=== PATIENT | male | born 1930 | race Caucasian/White ===

== ENCOUNTER 2018-10-20 08:55 | Observation (INO) | payer MEDICARE, BC ==
--- NOTE | 2018-10-20 09:07 | EDM.PDOC ---
ED HPI GENERAL MEDICAL PROBLEM - General Stated Complaint: HEART PALPATATION Time Seen by Provider: 10/20/18 08:55 Source of Information: Reports: Patient, Family () History Limitations: Reports: No Limitations - History of Present Illness INITIAL COMMENTS - FREE TEXT/NARRATIVE: 88 y.o.w.f with a H/O HTN, NIDDM, came to the ED with his family because of palpitations. No SOB, no CP, no other acute med issues. BP 153/85 RR 20 pulse 106 pulse ox on RA 97%. Temp36.6 Onset Date: 10/20/18 Onset Time: 07:00 Duration: Hour(s): Location: Reports: Generalized Quality: Reports: Other Severity: Mild Improves with: Reports: None Worsens with: Reports: None Context: Reports: Other Associated Symptoms: Reports: Weakness, Other (palpitations) DENIES ANY PAIN WHEN ASKED AT PRESENT TIME. Pain Score (Numeric/FACES): 0 - Related Data Allergies Allergy/AdvReac Type Severity Reaction Status Date / Time No Known Allergies Allergy Verified 10/20/18 13:44 Home Meds: Home Meds Doxazosin [Cardura] 8 mg PO DAILY 08/06/13 [History] Lisinopril 40 mg PO DAILY 08/06/13 [History] Metoprolol Succinate [Toprol XL 100mg] 100 mg PO DAILY 08/06/13 [History] Simvastatin [Zocor] 20 mg PO DAILY 08/06/13 [History] metFORMIN [Glucophage] 1,000 mg PO BID 08/06/13 [History] Aspirin 325 mg PO DAILY 10/20/18 [History] Carboxymethylcellulose Sodium [Refresh Tears 0.5% Ophth Soln] 1 drop EYEBOTH TID 10/20/18 [History] Finasteride [Proscar] 5 mg PO DAILY 10/20/18 [History] Past Medical History Cardiovascular History: Reports: Hypertension, [place] ED ROS GENERAL - Review of Systems Review Of Systems: See Below Constitutional: Reports: No Symptoms HEENT: Reports: No Symptoms Respiratory: Reports: No Symptoms Cardiovascular: Reports: Palpitations Endocrine: Reports: No Symptoms GI/Abdominal: Reports: No Symptoms : Reports: No Symptoms Musculoskeletal: Reports: No Symptoms Skin: Reports: No Symptoms Neurological: Reports: No Symptoms Psychiatric: Reports: No Symptoms Hematologic/Lymphatic: Reports: No Symptoms Immunologic: Reports: No Symptoms ED EXAM, GENERAL - Physical Exam Exam: See Below Exam Limited By: No Limitations General Appearance: Alert, WD/WN, Mild Distress Eye Exam: Bilateral Eye: Normal Inspection Ears: Normal External Exam Ear Exam: Bilateral Ear: Auricle Normal Nose: Normal Inspection Throat/Mouth: Normal Inspection, Normal Lips, Normal Voice, No Airway Compromise Head: Atraumatic, Normocephalic Neck: Normal Inspection, Supple, Non-Tender, Full Range of Motion Respiratory/Chest: No Respiratory Distress, Lungs Clear, Normal Breath Sounds Cardiovascular: Tachycardia, Extra Beats Peripheral Pulses: 1+: Brachial (L) GI/Abdominal: Normal Bowel Sounds, Soft, Non-Tender, No Organomegaly, Pelvis Stable (Male) Exam: Hernia (abd. wall.) Rectal (Males) Exam: Deferred Back Exam: Normal Inspection, Full Range of Motion Extremities: Normal Inspection, Normal Range of Motion, Non-Tender, No Pedal Edema, Normal Capillary Refill Neurological: Alert, Oriented, CN II-XII Intact, Normal Cognition Psychiatric: Normal Affect, Normal Mood Skin Exam: Warm, Dry, Intact, Normal Color, No Rash Lymphatic: No Adenopathy EKG INTERPRETATION EKG Date: 10/20/18 Time: 09:05 Rhythm: A-Fib Mcdermott: LAD-Left Mcdermott Deviation P-Wave: Absent QRS: Normal ST-T: Normal QT: Normal Comparison: NA - No Prior EKG Course - Vital Signs Text/Narrative:: 88 y.o.w.f with a H/O HTN, NIDDM, came to the ED with his family because of palpitations. No SOB, no CP, no other acute med issues. BP 153/85 RR 20 pulse 106 pulse ox on RA 97%. Temp36.6 PE: WNWD W M with palpitations A fib with RC=VR Labs: CBC nl INR 1.21 BUN 24 Cr. 1.0 GFR > 60 BUN/CR 24 Magnesium 1.1 Impression: Hypomagnesemia, a fib, new onset, dehydration Tx: Mg 2 gm, NS Reexam: Pt converted to NSR: Rate 80 SD 296 QTc 446, no acute ST/T wave chances. Pt had lunch and felt better. However, pt was orthostatic, Pt received NS and was admitted. 12.45 pm Consultation: Dr. Santos, Hospitalist: Accepted admission Plan: Admit to diop for OBS Last Recorded V/S: Last Vital Signs Temp 36.5 C 10/20/18 14:45 Pulse 72 10/20/18 14:45 Resp 20 10/20/18 14:45 BP 157/71 H 10/20/18 14:45 Pulse Ox 97 10/20/18 14:45 - Orders/Labs/Meds Orders: Active Orders 24 hr Category Date Time Status EKG Documentation Completion [RC] ASDIRECTED Care 10/20/18 08:58 Active EKG Documentation Completion [RC] ASDIRECTED Care 10/20/18 10:23 Active EKG 12 Lead [EK] Routine Ther 10/20/18 08:57 Ordered EKG 12 Lead [EK] Routine Ther 10/20/18 10:23 Ordered Medication Orders Enoxaparin Sodium (Lovenox) 30 mg SUBCUT Q24H KATTY Labs: Laboratory Tests 10/20/18 10/20/18 10/20/18 Range/Units 09:11 09:11 09:11 WBC 7.0 (4.5-12.0) X10-3/uL RBC 4.36 (4.30-5.75) x10(6)uL Hgb 13.3 L (13.5-17.8) g/dL Hct 39.7 (30.0-51.3) % MCV 91.0 (80-96) fL MCH 30.5 (27.7-33.6) pg MCHC 33.5 (32.2-35.4) g/dL RDW 13.7 (11.5-15.5) % Plt Count 186 (125-369) X10(3)uL MPV 8.5 (7.4-10.4) fL Neut % (Auto) 63.8 (46-82) % Lymph % (Auto) 27.5 (13-37) % [place] % (Auto) 7.1 (4-12) % Eos % (Auto) 1 (1.0-5.0) % Baso % (Auto) 0 (0-2) % Neut # (Auto) 4.5 (1.6-8.3) # Lymph # (Auto) 1.9 (0.6-5.0) # [place] # (Auto) 0.5 (0.0-1.3) # Eos # (Auto) 0.1 (0.0-0.8) # Baso # (Auto) 0.0 (0.0-0.2) # PT 11.7 H (8.7-11.1) INR 1.21 H (0.89-1.13) Sodium 141 (135-145) mmol/L Potassium 4.0 (3.5-5.3) mmol/L Chloride 104 (100-110) mmol/L Carbon Dioxide 25 (21-32) mmol/L BUN 24 H (7-18) mg/dL Creatinine 1.0 (0.70-1.30) mg/dL Est Cr Clr Drug Dosing TNP Estimated GFR (MDRD) > 60 (>60) BUN/Creatinine Ratio 24.0 H (9-20) Glucose 162 H (80-116) mg/dL Calcium 8.7 (8.6-10.2) mg/dL Magnesium 1.1 L* (1.8-2.5) mg/dL Troponin I (<0.017-0.056) ng/mL Urine Color (YELLOW) Urine Appearance (CLEAR) Urine pH (5.0-6.5) Ur Specific [place] (1.010-1.025) Urine Protein (NEGATIVE) mg/dL Urine Glucose (UA) (NORMAL) mg/dL Urine Ketones (NEGATIVE) mg/dL Urine Occult Blood (NEGATIVE) Urine Nitrite (NEGATIVE) Urine Bilirubin (NEGATIVE) Urine Urobilinogen (NEGATIVE) mg/dL Ur Leukocyte Esterase (NEGATIVE) Urine RBC (0-5) Urine WBC (0-5) Ur Squamous Epith Cells (NS,R,O) Urine Bacteria (NS) 10/20/18 10/20/18 Range/Units 09:11 10:29 WBC (4.5-12.0) X10-3/uL RBC (4.30-5.75) x10(6)uL Hgb (13.5-17.8) g/dL Hct (30.0-51.3) % MCV (80-96) fL MCH (27.7-33.6) pg MCHC (32.2-35.4) g/dL RDW (11.5-15.5) % Plt Count (125-369) X10(3)uL MPV (7.4-10.4) fL Neut % (Auto) (46-82) % Lymph % (Auto) (13-37) % [place] % (Auto) (4-12) % Eos % (Auto) (1.0-5.0) % Baso % (Auto) (0-2) % Neut # (Auto) (1.6-8.3) # Lymph # (Auto) (0.6-5.0) # [place] # (Auto) (0.0-1.3) # Eos # (Auto) (0.0-0.8) # Baso # (Auto) (0.0-0.2) # PT (8.7-11.1) INR (0.89-1.13) Sodium (135-145) mmol/L Potassium (3.5-5.3) mmol/L Chloride (100-110) mmol/L Carbon Dioxide (21-32) mmol/L BUN (7-18) mg/dL Creatinine (0.70-1.30) mg/dL Est Cr Clr Drug Dosing Estimated GFR (MDRD) (>60) BUN/Creatinine Ratio (9-20) Glucose (80-116) mg/dL Calcium (8.6-10.2) mg/dL Magnesium (1.8-2.5) mg/dL Troponin I 0.019 (<0.017-0.056) ng/mL Urine Color Yellow (YELLOW) Urine Appearance Clear (CLEAR) Urine pH 5.0 (5.0-6.5) Ur Specific [place] 1.015 (1.010-1.025) Urine Protein Negative (NEGATIVE) mg/dL Urine Glucose (UA) Normal (NORMAL) mg/dL Urine Ketones Negative (NEGATIVE) mg/dL Urine Occult Blood Negative (NEGATIVE) Urine Nitrite Negative (NEGATIVE) Urine Bilirubin Negative (NEGATIVE) Urine Urobilinogen Normal (NEGATIVE) mg/dL Ur Leukocyte Esterase Negative (NEGATIVE) Urine RBC Not seen (0-5) Urine WBC 0-5 (0-5) Ur Squamous Epith Cells Occasional (NS,R,O) Urine Bacteria Rare H (NS) Meds: Medications Generic Name Dose Route Start Last Admin Trade Name Freq PRN Reason Stop Dose Admin Enoxaparin Sodium 30 mg 10/20/18 17:30 Lovenox SUBCUT Q24H KATTY Discontinued Medications Generic Name Dose Route Start Last Admin Trade Name Freq PRN Reason Stop Dose Admin Sodium Chloride 500 mls @ 999 mls/hr 10/20/18 09:16 10/20/18 09:27 Normal Saline IV 10/20/18 09:46 999 mls/hr .BOLUS ONE Administration Magnesium Sulfate 2 gm/ Premix 50 mls @ 150 mls/hr 10/20/18 09:29 10/20/18 09 :33 IV 10/20/18 09:48 150 mls/hr ONETIME ONE Administration Meclizine HCl 25 mg 10/20/18 10:53 10/20/18 11:29 Antivert PO 10/20/18 10:54 25 mg ONETIME STA Administration Departure - Departure Time of Disposition: 10:51 Disposition: Home, Self-Care 01 Condition: Good Clinical Impression: Hypomagnesemia, Dehydration - My Orders Last 24 Hours: My Active Orders 10/20/18 08:57 EKG 12 Lead [EK] Routine 10/20/18 08:58 EKG Documentation Completion [RC] ASDIRECTED 10/20/18 10:23 EKG Documentation Completion [RC] ASDIRECTED EKG 12 Lead [EK] Routine - Assessment/Plan Last 24 Hours: My Active Orders 10/20/18 08:57 EKG 12 Lead [EK] Routine 10/20/18 08:58 EKG Documentation Completion [RC] ASDIRECTED 10/20/18 10:23 EKG Documentation Completion [RC] ASDIRECTED EKG 12 Lead [EK] Routine
[2018-10-20] MEDS ORDERED: Sodium Chloride 0.9% 500 ML IV ONE (09:16)
[2018-10-20] MEDS ORDERED: Magnesium Sulfate/Water 2 GM in Premix Bag 1 BAG IV ONE (09:29)
[2018-10-20] MEDS ORDERED: Sodium Chloride 0.9% 1,000 ML IV ONE (09:58)
[2018-10-20] MEDS ORDERED: Meclizine 25 MG Tab PO STA (10:53)
--- NOTE | 2018-10-20 17:18 | PCM.HP ---
H&P History of Present Illness - General Date of Service: 10/20/18 Admit Problem/Dx: Admission Diagnosis/Problem Admission Diagnosis/Problem Hypotensive episode Source of Information: Patient, Old Records History Limitations: Reports: No Limitations - History of Present Illness Initial Comments - Free Text/Narative: This is a 88-year-old male patient with diabetes and hypertension states today he started having some palpitations of rapid heart heartbeats. Says he felt a little funny but wasn't short of breath and no chest pain or dizziness. He didn' t go away so he came to the ER. He was diagnosed A. fib and hypomagnesemia. Give him IV magnesium and he converted immediately. He's never had A. fib before. His blood pressure is very low is given IV fluids and because of low blood pressure he was admitted for observation. He apparently had stents placed 25 years ago but nothing recently and his heart. DENIES ANY PAIN WHEN ASKED AT PRESENT TIME. Pain Score (Numeric/FACES): 0 - Related Data Allergies/Adverse Reactions: Allergies Allergy/AdvReac Type Severity Reaction Status Date / Time No Known Allergies Allergy Verified 10/20/18 13:44 Home Medications: Home Meds Doxazosin [Cardura] 8 mg PO DAILY 08/06/13 [History] Lisinopril 40 mg PO DAILY 08/06/13 [History] Metoprolol Succinate [Toprol XL 100mg] 100 mg PO DAILY 08/06/13 [History] Simvastatin [Zocor] 20 mg PO DAILY 08/06/13 [History] metFORMIN [Glucophage] 1,000 mg PO BID 08/06/13 [History] Aspirin 325 mg PO DAILY 10/20/18 [History] Carboxymethylcellulose Sodium [Refresh Tears 0.5% Ophth Soln] 1 drop EYEBOTH TID 10/20/18 [History] Finasteride [Proscar] 5 mg PO DAILY 10/20/18 [History] Past Medical History HEENT History: Reports: Cataract, Impaired Vision Cardiovascular History: Reports: Hypertension, [place] Respiratory History: Reports: SOB Gastrointestinal History: Reports: GERD, Hemorrhoids Musculoskeletal History: Reports: Arthritis, Back Pain, Chronic Endocrine/Metabolic History: Reports: Diabetes, Type II - Infectious Disease History Infectious Disease History: Reports: Chicken Pox, Measles, Mumps - Past Surgical History HEENT Surgical History: Reports: Cataract Surgery Cardiovascular Surgical History: Reports: Coronary Artery Stent Respiratory Surgical History: Reports: None GI Surgical History: Reports: Colonoscopy Endocrine Surgical History: Reports: None Musculoskeletal Surgical History: Reports: None Dermatological Surgical History: Reports: None Social & Family History - Family History Family Medical History: Noncontributory - Tobacco Use Smoking Status *Q: Former Smoker Years of Tobacco use: 40 Used Tobacco, but Quit: Yes Month/Year Tobacco Last Used: 40 YEARS AGO Second Hand Smoke Exposure: No - Caffeine Use Caffeine Use: Reports: Coffee - Recreational Drug Use Recreational Drug Use: No H&P Review of Systems - Review of Systems: Review Of Systems: See Below General: Reports: No Symptoms HEENT: Reports: No Symptoms Pulmonary: Reports: No Symptoms Cardiovascular: Reports: Palpitations Gastrointestinal: Reports: No Symptoms Genitourinary: Reports: No Symptoms Musculoskeletal: Reports: No Symptoms Skin: Reports: No Symptoms Psychiatric: Reports: No Symptoms Neurological: Reports: No Symptoms Hematologic/Lymphatic: Reports: No Symptoms Immunologic: Reports: No Symptoms Exam - Exam Exam: See Below - Vital Signs Vital Signs: Last Vital Signs Temp 97.7 F 10/20/18 14:45 Pulse 72 10/20/18 14:45 Resp 20 10/20/18 14:45 BP 157/71 H 10/20/18 14:45 Pulse Ox 97 10/20/18 14:45 Weight: 201 lb 5 oz - Exam General: Alert, Oriented, Cooperative HEENT: Hearing Intact, Posterior Pharynx Clear, Pupils Equal, TMs Clear Neck: Supple, Trachea Midline. No: Lymphadenopathy, Carotid Bruit Lungs: Clear to Auscultation, Normal Respiratory Effort Cardiovascular: Regular Rate, Regular Rhythm. No: Bradycardia, Tachycardia, Systolic Murmur, Diastolic Murmur GI/Abdominal Exam: Normal Bowel Sounds, Soft, Non-Tender, No Organomegaly, No Distention, No Abnormal Bruit, No Mass Rectal (Males) Exam: Normal Exam Extremities: Normal Inspection, No Pedal Edema Skin: Warm, Intact Neurological: Normal Gait, Normal Speech Neuro Extensive - Mental Status: Alert, Oriented x3, Normal Mood/Affect, Normal Cognition, Disorientation to Time Neuro Extensive - Motor, Sensory, Reflexes: Normal Gait Psychiatric: Alert, Normal Affect, Normal Mood - Patient Data Lab Results Last 24 hrs: Laboratory Results - last 24 hr 10/20/18 10/20/18 10/20/18 Range/Units 09:11 09:11 09:11 WBC 7.0 (4.5-12.0) X10-3/uL RBC 4.36 (4.30-5.75) x10(6)uL Hgb 13.3 L (13.5-17.8) g/dL Hct 39.7 (30.0-51.3) % MCV 91.0 (80-96) fL MCH 30.5 (27.7-33.6) pg MCHC 33.5 (32.2-35.4) g/dL RDW 13.7 (11.5-15.5) % Plt Count 186 (125-369) X10(3)uL MPV 8.5 (7.4-10.4) fL Neut % (Auto) 63.8 (46-82) % Lymph % (Auto) 27.5 (13-37) % [place] % (Auto) 7.1 (4-12) % Eos % (Auto) 1 (1.0-5.0) % Baso % (Auto) 0 (0-2) % Neut # (Auto) 4.5 (1.6-8.3) # Lymph # (Auto) 1.9 (0.6-5.0) # [place] # (Auto) 0.5 (0.0-1.3) # Eos # (Auto) 0.1 (0.0-0.8) # Baso # (Auto) 0.0 (0.0-0.2) # PT 11.7 H (8.7-11.1) INR 1.21 H (0.89-1.13) Sodium 141 (135-145) mmol/L Potassium 4.0 (3.5-5.3) mmol/L Chloride 104 (100-110) mmol/L Carbon Dioxide 25 (21-32) mmol/L BUN 24 H (7-18) mg/dL Creatinine 1.0 (0.70-1.30) mg/dL Est Cr Clr Drug Dosing TNP Estimated GFR (MDRD) > 60 (>60) BUN/Creatinine Ratio 24.0 H (9-20) Glucose 162 H (80-116) mg/dL Calcium 8.7 (8.6-10.2) mg/dL Magnesium 1.1 L* (1.8-2.5) mg/dL Troponin I (<0.017-0.056) ng/mL Urine Color (YELLOW) Urine Appearance (CLEAR) Urine pH (5.0-6.5) Ur Specific [place] (1.010-1.025) Urine Protein (NEGATIVE) mg/dL Urine Glucose (UA) (NORMAL) mg/dL Urine Ketones (NEGATIVE) mg/dL Urine Occult Blood (NEGATIVE) Urine Nitrite (NEGATIVE) Urine Bilirubin (NEGATIVE) Urine Urobilinogen (NEGATIVE) mg/dL Ur Leukocyte Esterase (NEGATIVE) Urine RBC (0-5) Urine WBC (0-5) Ur Squamous Epith Cells (NS,R,O) Urine Bacteria (NS) 10/20/18 10/20/18 Range/Units 09:11 10:29 WBC (4.5-12.0) X10-3/uL RBC (4.30-5.75) x10(6)uL Hgb (13.5-17.8) g/dL Hct (30.0-51.3) % MCV (80-96) fL MCH (27.7-33.6) pg MCHC (32.2-35.4) g/dL RDW (11.5-15.5) % Plt Count (125-369) X10(3)uL MPV (7.4-10.4) fL Neut % (Auto) (46-82) % Lymph % (Auto) (13-37) % [place] % (Auto) (4-12) % Eos % (Auto) (1.0-5.0) % Baso % (Auto) (0-2) % Neut # (Auto) (1.6-8.3) # Lymph # (Auto) (0.6-5.0) # [place] # (Auto) (0.0-1.3) # Eos # (Auto) (0.0-0.8) # Baso # (Auto) (0.0-0.2) # PT (8.7-11.1) INR (0.89-1.13) Sodium (135-145) mmol/L Potassium (3.5-5.3) mmol/L Chloride (100-110) mmol/L Carbon Dioxide (21-32) mmol/L BUN (7-18) mg/dL Creatinine (0.70-1.30) mg/dL Est Cr Clr Drug Dosing Estimated GFR (MDRD) (>60) BUN/Creatinine Ratio (9-20) Glucose (80-116) mg/dL Calcium (8.6-10.2) mg/dL Magnesium (1.8-2.5) mg/dL Troponin I 0.019 (<0.017-0.056) ng/mL Urine Color Yellow (YELLOW) Urine Appearance Clear (CLEAR) Urine pH 5.0 (5.0-6.5) Ur Specific [place] 1.015 (1.010-1.025) Urine Protein Negative (NEGATIVE) mg/dL Urine Glucose (UA) Normal (NORMAL) mg/dL Urine Ketones Negative (NEGATIVE) mg/dL Urine Occult Blood Negative (NEGATIVE) Urine Nitrite Negative (NEGATIVE) Urine Bilirubin Negative (NEGATIVE) Urine Urobilinogen Normal (NEGATIVE) mg/dL Ur Leukocyte Esterase Negative (NEGATIVE) Urine RBC Not seen (0-5) Urine WBC 0-5 (0-5) Ur Squamous Epith Cells Occasional (NS,R,O) Urine Bacteria Rare H (NS) Result Diagrams: 10/20/18 09:11 10/20/18 09:11 EKG INTERPRETATION EKG Interpretation Comments: A. fib that converted. - Problem List (1) A-fib SNOMED Code(s): 57713150 ICD Code: I48.91 - UNSPECIFIED ATRIAL FIBRILLATION Status: Acute Current Visit: Yes (2) Hypotension SNOMED Code(s): 70774535 ICD Code: I95.9 - HYPOTENSION, UNSPECIFIED Status: Acute Current Visit: Yes (3) Admission for palliative care SNOMED Code(s): 385806289, 044662847 ICD Code: Z51.5 - ENCOUNTER FOR PALLIATIVE CARE Status: Acute Current Visit: Yes (4) Dehydration SNOMED Code(s): 77215736 ICD Code: E86.0 - DEHYDRATION Status: Acute Current Visit: Yes (5) Hypomagnesemia SNOMED Code(s): 612661708 ICD Code: E83.42 - HYPOMAGNESEMIA Status: Acute Current Visit: Yes Problem List Initiated/Reviewed/Updated: Yes Orders Last 24hrs: Active Orders 24 hr Category Date Time Status Patient Status [ADT] Routine ADT 10/20/18 12:46 Active Cardiac Monitoring [RC] CONTINUOUS Care 10/20/18 12:49 Active EKG Documentation Completion [RC] ASDIRECTED Care 10/20/18 08:58 Active EKG Documentation Completion [RC] ASDIRECTED Care 10/20/18 10:23 Active Oxygen Therapy [RC] PRN Care 10/20/18 12:46 Active Pulse Oximetry [RC] PRN Care 10/20/18 12:49 Active Up With Assistance [RC] ASDIRECTED Care 10/20/18 12:46 Active VTE/DVT Education [RC] Per Unit Routine Care 10/20/18 12:46 Active Vital Signs [RC] Q4H Care 10/20/18 12:46 Active Consistent Carbohydrate Diet [DIET] Diet 10/20/18 Dinner Active Resuscitation Status Routine Resus Stat 10/20/18 12:46 Ordered EKG 12 Lead [EK] Routine Ther 10/20/18 08:57 Ordered EKG 12 Lead [EK] Routine Ther 10/20/18 10:23 Ordered
[2018-10-20] MEDS ORDERED: Enoxaparin 30 MG/0.3 ML Syringe SUBCUT SCH (17:30)
--- NOTE | 2018-10-20 17:30 | PCM.HP ---
H&P History of Present Illness - General Date of Service: 10/21/18 Admit Problem/Dx: Admission Diagnosis/Problem Admission Diagnosis/Problem Hypotensive episode Source of Information: Patient - History of Present Illness Initial Comments - Free Text/Narative: See other H&P. Discard this one. DENIES ANY PAIN WHEN ASKED AT PRESENT TIME. Pain Score (Numeric/FACES): 0 - Related Data Allergies/Adverse Reactions: Allergies Allergy/AdvReac Type Severity Reaction Status Date / Time No Known Allergies Allergy Verified 10/20/18 13:44 Home Medications: Home Meds Doxazosin [Cardura] 8 mg PO DAILY 08/06/13 [History] Lisinopril 40 mg PO DAILY 08/06/13 [History] Metoprolol Succinate [Toprol XL 100mg] 100 mg PO DAILY 08/06/13 [History] Simvastatin [Zocor] 20 mg PO DAILY 08/06/13 [History] metFORMIN [Glucophage] 1,000 mg PO BID 08/06/13 [History] Aspirin 325 mg PO DAILY 10/20/18 [History] Carboxymethylcellulose Sodium [Refresh Tears 0.5% Ophth Soln] 1 drop EYEBOTH TID 10/20/18 [History] Finasteride [Proscar] 5 mg PO DAILY 10/20/18 [History] Past Medical History HEENT History: Reports: Cataract, Impaired Vision Cardiovascular History: Reports: Hypertension, [place] Respiratory History: Reports: SOB Gastrointestinal History: Reports: GERD, Hemorrhoids Musculoskeletal History: Reports: Arthritis, Back Pain, Chronic Endocrine/Metabolic History: Reports: Diabetes, Type II - Infectious Disease History Infectious Disease History: Reports: Chicken Pox, Measles, Mumps - Past Surgical History HEENT Surgical History: Reports: Cataract Surgery Cardiovascular Surgical History: Reports: Coronary Artery Stent Respiratory Surgical History: Reports: None GI Surgical History: Reports: Colonoscopy Endocrine Surgical History: Reports: None Musculoskeletal Surgical History: Reports: None Dermatological Surgical History: Reports: None Social & Family History - Family History Family Medical History: Noncontributory - Tobacco Use Smoking Status *Q: Former Smoker Years of Tobacco use: 40 Used Tobacco, but Quit: Yes Month/Year Tobacco Last Used: 40 YEARS AGO Second Hand Smoke Exposure: No - Caffeine Use Caffeine Use: Reports: Coffee - Recreational Drug Use Recreational Drug Use: No H&P Review of Systems - Review of Systems: Review Of Systems: See Below General: Reports: No Symptoms Exam - Exam Exam: See Below - Vital Signs Vital Signs: Last Vital Signs Temp 97.7 F 10/20/18 14:45 Pulse 72 10/20/18 14:45 Resp 20 10/20/18 14:45 BP 157/71 H 10/20/18 14:45 Pulse Ox 97 10/20/18 14:45 Weight: 201 lb 5 oz - Exam General: Alert - Patient Data Lab Results Last 24 hrs: Laboratory Results - last 24 hr 10/20/18 10/20/18 10/20/18 Range/Units 09:11 09:11 09:11 WBC 7.0 (4.5-12.0) X10-3/uL RBC 4.36 (4.30-5.75) x10(6)uL Hgb 13.3 L (13.5-17.8) g/dL Hct 39.7 (30.0-51.3) % MCV 91.0 (80-96) fL MCH 30.5 (27.7-33.6) pg MCHC 33.5 (32.2-35.4) g/dL RDW 13.7 (11.5-15.5) % Plt Count 186 (125-369) X10(3)uL MPV 8.5 (7.4-10.4) fL Neut % (Auto) 63.8 (46-82) % Lymph % (Auto) 27.5 (13-37) % [place] % (Auto) 7.1 (4-12) % Eos % (Auto) 1 (1.0-5.0) % Baso % (Auto) 0 (0-2) % Neut # (Auto) 4.5 (1.6-8.3) # Lymph # (Auto) 1.9 (0.6-5.0) # [place] # (Auto) 0.5 (0.0-1.3) # Eos # (Auto) 0.1 (0.0-0.8) # Baso # (Auto) 0.0 (0.0-0.2) # PT 11.7 H (8.7-11.1) INR 1.21 H (0.89-1.13) Sodium 141 (135-145) mmol/L Potassium 4.0 (3.5-5.3) mmol/L Chloride 104 (100-110) mmol/L Carbon Dioxide 25 (21-32) mmol/L BUN 24 H (7-18) mg/dL Creatinine 1.0 (0.70-1.30) mg/dL Est Cr Clr Drug Dosing TNP Estimated GFR (MDRD) > 60 (>60) BUN/Creatinine Ratio 24.0 H (9-20) Glucose 162 H (80-116) mg/dL Calcium 8.7 (8.6-10.2) mg/dL Magnesium 1.1 L* (1.8-2.5) mg/dL Troponin I (<0.017-0.056) ng/mL Urine Color (YELLOW) Urine Appearance (CLEAR) Urine pH (5.0-6.5) Ur Specific [place] (1.010-1.025) Urine Protein (NEGATIVE) mg/dL Urine Glucose (UA) (NORMAL) mg/dL Urine Ketones (NEGATIVE) mg/dL Urine Occult Blood (NEGATIVE) Urine Nitrite (NEGATIVE) Urine Bilirubin (NEGATIVE) Urine Urobilinogen (NEGATIVE) mg/dL Ur Leukocyte Esterase (NEGATIVE) Urine RBC (0-5) Urine WBC (0-5) Ur Squamous Epith Cells (NS,R,O) Urine Bacteria (NS) 10/20/18 10/20/18 Range/Units 09:11 10:29 WBC (4.5-12.0) X10-3/uL RBC (4.30-5.75) x10(6)uL Hgb (13.5-17.8) g/dL Hct (30.0-51.3) % MCV (80-96) fL MCH (27.7-33.6) pg MCHC (32.2-35.4) g/dL RDW (11.5-15.5) % Plt Count (125-369) X10(3)uL MPV (7.4-10.4) fL Neut % (Auto) (46-82) % Lymph % (Auto) (13-37) % [place] % (Auto) (4-12) % Eos % (Auto) (1.0-5.0) % Baso % (Auto) (0-2) % Neut # (Auto) (1.6-8.3) # Lymph # (Auto) (0.6-5.0) # [place] # (Auto) (0.0-1.3) # Eos # (Auto) (0.0-0.8) # Baso # (Auto) (0.0-0.2) # PT (8.7-11.1) INR (0.89-1.13) Sodium (135-145) mmol/L Potassium (3.5-5.3) mmol/L Chloride (100-110) mmol/L Carbon Dioxide (21-32) mmol/L BUN (7-18) mg/dL Creatinine (0.70-1.30) mg/dL Est Cr Clr Drug Dosing Estimated GFR (MDRD) (>60) BUN/Creatinine Ratio (9-20) Glucose (80-116) mg/dL Calcium (8.6-10.2) mg/dL Magnesium (1.8-2.5) mg/dL Troponin I 0.019 (<0.017-0.056) ng/mL Urine Color Yellow (YELLOW) Urine Appearance Clear (CLEAR) Urine pH 5.0 (5.0-6.5) Ur Specific [place] 1.015 (1.010-1.025) Urine Protein Negative (NEGATIVE) mg/dL Urine Glucose (UA) Normal (NORMAL) mg/dL Urine Ketones Negative (NEGATIVE) mg/dL Urine Occult Blood Negative (NEGATIVE) Urine Nitrite Negative (NEGATIVE) Urine Bilirubin Negative (NEGATIVE) Urine Urobilinogen Normal (NEGATIVE) mg/dL Ur Leukocyte Esterase Negative (NEGATIVE) Urine RBC Not seen (0-5) Urine WBC 0-5 (0-5) Ur Squamous Epith Cells Occasional (NS,R,O) Urine Bacteria Rare H (NS) Result Diagrams: 10/20/18 09:11 10/20/18 09:11 - Problem List (1) A-fib SNOMED Code(s): 93117882 ICD Code: I48.91 - UNSPECIFIED ATRIAL FIBRILLATION Status: Acute Current Visit: Yes Problem List Initiated/Reviewed/Updated: Yes Orders Last 24hrs: Active Orders 24 hr Category Date Time Status Patient Status [ADT] Routine ADT 10/20/18 12:46 Active Cardiac Monitoring [RC] CONTINUOUS Care 10/20/18 12:49 Active EKG Documentation Completion [RC] ASDIRECTED Care 10/20/18 08:58 Active EKG Documentation Completion [RC] ASDIRECTED Care 10/20/18 10:23 Active Oxygen Therapy [RC] PRN Care 10/20/18 12:46 Active Pulse Oximetry [RC] PRN Care 10/20/18 12:49 Active Up With Assistance [RC] ASDIRECTED Care 10/20/18 12:46 Active VTE/DVT Education [RC] Per Unit Routine Care 10/20/18 12:46 Active Vital Signs [RC] Q4H Care 10/20/18 12:46 Active Consistent Carbohydrate Diet [DIET] Diet 10/20/18 Dinner Active Resuscitation Status Routine Resus Stat 10/20/18 12:46 Ordered EKG 12 Lead [EK] Routine Ther 10/20/18 08:57 Ordered EKG 12 Lead [EK] Routine Ther 10/20/18 10:23 Ordered Assessment/Plan Comment:: See other h and P.
[2018-10-21] MEDS ORDERED: Acetaminophen 325 MG Tab PO PRN (05:17)
--- NOTE | 2018-10-21 08:01 | PCM.PN ---
- General Info Date of Service: 10/21/18 Admission Dx/Problem (Free Text): Patient denies chest pain, shortness of breath, palpitations, leg swelling, fevers, chills. - Patient Data Vitals - Most Recent: Last Vital Signs Temp 97.9 F 10/21/18 06:01 Pulse 70 10/21/18 06:01 Resp 18 10/21/18 06:01 BP 164/82 H 10/21/18 06:01 Pulse Ox 97 10/21/18 06:01 Weight - Most Recent: 201 lb 5 oz Lab Results Last 24 Hours: Laboratory Results - last 24 hr 10/20/18 10/20/18 10/20/18 Range/Units 09:11 09:11 09:11 WBC 7.0 (4.5-12.0) X10-3/uL RBC 4.36 (4.30-5.75) x10(6)uL Hgb 13.3 L (13.5-17.8) g/dL Hct 39.7 (30.0-51.3) % MCV 91.0 (80-96) fL MCH 30.5 (27.7-33.6) pg MCHC 33.5 (32.2-35.4) g/dL RDW 13.7 (11.5-15.5) % Plt Count 186 (125-369) X10(3)uL MPV 8.5 (7.4-10.4) fL Neut % (Auto) 63.8 (46-82) % Lymph % (Auto) 27.5 (13-37) % [place] % (Auto) 7.1 (4-12) % Eos % (Auto) 1 (1.0-5.0) % Baso % (Auto) 0 (0-2) % Neut # (Auto) 4.5 (1.6-8.3) # Lymph # (Auto) 1.9 (0.6-5.0) # [place] # (Auto) 0.5 (0.0-1.3) # Eos # (Auto) 0.1 (0.0-0.8) # Baso # (Auto) 0.0 (0.0-0.2) # PT 11.7 H (8.7-11.1) INR 1.21 H (0.89-1.13) Sodium 141 (135-145) mmol/L Potassium 4.0 (3.5-5.3) mmol/L Chloride 104 (100-110) mmol/L Carbon Dioxide 25 (21-32) mmol/L BUN 24 H (7-18) mg/dL Creatinine 1.0 (0.70-1.30) mg/dL Est Cr Clr Drug Dosing TNP Estimated GFR (MDRD) > 60 (>60) BUN/Creatinine Ratio 24.0 H (9-20) Glucose 162 H (80-116) mg/dL Calcium 8.7 (8.6-10.2) mg/dL Magnesium 1.1 L* (1.8-2.5) mg/dL Troponin I (<0.017-0.056) ng/mL Urine Color (YELLOW) Urine Appearance (CLEAR) Urine pH (5.0-6.5) Ur Specific [place] (1.010-1.025) Urine Protein (NEGATIVE) mg/dL Urine Glucose (UA) (NORMAL) mg/dL Urine Ketones (NEGATIVE) mg/dL Urine Occult Blood (NEGATIVE) Urine Nitrite (NEGATIVE) Urine Bilirubin (NEGATIVE) Urine Urobilinogen (NEGATIVE) mg/dL Ur Leukocyte Esterase (NEGATIVE) Urine RBC (0-5) Urine WBC (0-5) Ur Squamous Epith Cells (NS,R,O) Urine Bacteria (NS) 10/20/18 10/20/18 10/21/18 Range/Units 09:11 10:29 06:30 WBC (4.5-12.0) X10-3/uL RBC (4.30-5.75) x10(6)uL Hgb (13.5-17.8) g/dL Hct (30.0-51.3) % MCV (80-96) fL MCH (27.7-33.6) pg MCHC (32.2-35.4) g/dL RDW (11.5-15.5) % Plt Count (125-369) X10(3)uL MPV (7.4-10.4) fL Neut % (Auto) (46-82) % Lymph % (Auto) (13-37) % [place] % (Auto) (4-12) % Eos % (Auto) (1.0-5.0) % Baso % (Auto) (0-2) % Neut # (Auto) (1.6-8.3) # Lymph # (Auto) (0.6-5.0) # [place] # (Auto) (0.0-1.3) # Eos # (Auto) (0.0-0.8) # Baso # (Auto) (0.0-0.2) # PT (8.7-11.1) INR (0.89-1.13) Sodium (135-145) mmol/L Potassium (3.5-5.3) mmol/L Chloride (100-110) mmol/L Carbon Dioxide (21-32) mmol/L BUN (7-18) mg/dL Creatinine (0.70-1.30) mg/dL Est Cr Clr Drug Dosing Estimated GFR (MDRD) (>60) BUN/Creatinine Ratio (9-20) Glucose (80-116) mg/dL Calcium (8.6-10.2) mg/dL Magnesium (1.8-2.5) mg/dL Troponin I 0.019 0.035 (<0.017-0.056) ng/mL Urine Color Yellow (YELLOW) Urine Appearance Clear (CLEAR) Urine pH 5.0 (5.0-6.5) Ur Specific [place] 1.015 (1.010-1.025) Urine Protein Negative (NEGATIVE) mg/dL Urine Glucose (UA) Normal (NORMAL) mg/dL Urine Ketones Negative (NEGATIVE) mg/dL Urine Occult Blood Negative (NEGATIVE) Urine Nitrite Negative (NEGATIVE) Urine Bilirubin Negative (NEGATIVE) Urine Urobilinogen Normal (NEGATIVE) mg/dL Ur Leukocyte Esterase Negative (NEGATIVE) Urine RBC Not seen (0-5) Urine WBC 0-5 (0-5) Ur Squamous Epith Cells Occasional (NS,R,O) Urine Bacteria Rare H (NS) Med Orders - Current: Current Medications Acetaminophen (Tylenol) 650 mg PO Q4H PRN PRN Reason: Pain (mild 1-3) Last Admin: 10/21/18 05:46 Dose: 650 mg Enoxaparin Sodium (Lovenox) 30 mg SUBCUT Q24H KATTY Last Admin: 10/20/18 18:07 Dose: 30 mg Discontinued Medications Sodium Chloride (Normal Saline) 500 mls @ 999 mls/hr IV .BOLUS ONE Stop: 10/20/18 09:46 Last Admin: 10/20/18 09:27 Dose: 999 mls/hr Magnesium Sulfate 2 gm/ Premix 50 mls @ 150 mls/hr IV ONETIME ONE Stop: 10/20/18 09:48 Last Admin: 10/20/18 09:33 Dose: 150 mls/hr Sodium Chloride (Normal Saline) 1,000 mls @ 999 mls/hr IV .BOLUS ONE Stop: 10/20/18 10:58 Last Infusion: 10/20/18 10:25 Dose: 20 mls/hr Meclizine HCl (Antivert) 25 mg PO ONETIME STA Stop: 10/20/18 10:54 Last Admin: 10/20/18 11:29 Dose: 25 mg - Exam General: Alert, Oriented, Cooperative Lungs: Clear to Auscultation, Normal Respiratory Effort Cardiovascular: Regular Rate, Regular Rhythm, No Murmurs Extremities: No Pedal Edema EKG INTERPRETATION EKG Interpretation Comments: Telemetry overnight was normal sinus rhythm with occasional PVC. - Problem List & Annotations (1) A-fib SNOMED Code(s): 52598005 Code(s): I48.91 - UNSPECIFIED ATRIAL FIBRILLATION Status: Acute Current Visit: Yes (2) Admission for palliative care SNOMED Code(s): 636357916, 820800636 Code(s): Z51.5 - ENCOUNTER FOR PALLIATIVE CARE Status: Acute Current Visit: Yes (3) Dehydration SNOMED Code(s): 43354216 Code(s): E86.0 - DEHYDRATION Status: Acute Current Visit: Yes (4) Hypomagnesemia SNOMED Code(s): 921921482 Code(s): E83.42 - HYPOMAGNESEMIA Status: Acute Current Visit: Yes (5) Hypotension SNOMED Code(s): 49722699 Code(s): I95.9 - HYPOTENSION, UNSPECIFIED Status: Acute Current Visit: Yes - Problem List Review Problem List Initiated/Reviewed/Updated: Yes - My Orders Last 24 Hours: My Active Orders 10/20/18 17:20 EKG Documentation Completion [RC] 0600 10/20/18 17:30 Enoxaparin [Lovenox] 30 mg SUBCUT Q24H 10/20/18 Dinner Consistent Carbohydrate Diet [DIET] 10/21/18 05:11 EKG 12 Lead [EK] AM 10/21/18 05:17 Acetaminophen [Tylenol] 650 mg PO Q4H PRN - Plan Plan:: 1. Discharge to home. 2. Continue his same medications. 3. I recommended that he start some multivitamin a day. 4. He has more palpitations he is come back and will do an EKG here or at the clinic. If he goes back into A. fib I think he then should be on anticoagulation.
--- NOTE | 2018-10-21 08:05 | PCM.DCSUM1 ---
Discharge Summary - Hospital Course Free Text/Narrative:: Hospital course-patient was admitted after he had IV fluids and magnesium. He spontaneous converted in the ER. He is placed on telemetry and watched overnight and he had normal sinus rhythm with occasional PVC. He was asymptomatic. Recheck his troponin and EKG in the morning and they're essentially negative other than a PVC. Since the patient spontaneously converted and has never had symptoms A. fib we did not pursue anticoagulation. I did talk to about A. fib and need for anticoagulation if this occurs again. He 'll be discharged on his regular medications. His blood pressure was low and is given fluids as blood pressure was normal or even higher at the hospital. Brief History: This is a 88-year-old male patient with diabetes and hypertension states today he started having some palpitations of rapid heart heartbeats. Says he felt a little funny but wasn't short of breath and no chest pain or dizziness. He didn't go away so he came to the ER. He was diagnosed A. fib and hypomagnesemia. Give him IV magnesium and he converted immediately. He' s never had A. fib before. His blood pressure is very low is given IV fluids and because of low blood pressure he was admitted for observation. He apparently had stents placed 25 years ago but nothing recently and his heart. Diagnosis: Stroke: No - Discharge Data Discharge Date: 10/21/18 Discharge Disposition: Home, Self-Care 01 Condition: Stable - Discharge Diagnosis/Problem(s) (1) A-fib SNOMED Code(s): 97172026 ICD Code: I48.91 - UNSPECIFIED ATRIAL FIBRILLATION Status: Acute Current Visit: Yes (2) Admission for palliative care SNOMED Code(s): 222728210, 799844129 ICD Code: Z51.5 - ENCOUNTER FOR PALLIATIVE CARE Status: Acute Current Visit: Yes (3) Dehydration SNOMED Code(s): 56734411 ICD Code: E86.0 - DEHYDRATION Status: Acute Current Visit: Yes (4) Hypomagnesemia SNOMED Code(s): 320883418 ICD Code: E83.42 - HYPOMAGNESEMIA Status: Acute Current Visit: Yes (5) Hypotension SNOMED Code(s): 73353961 ICD Code: I95.9 - HYPOTENSION, UNSPECIFIED Status: Acute Current Visit: Yes - Patient Instructions Diet: Diabetic Diet Activity: As Tolerated Driving: May Drive Today Showering/Bathing: May Shower Other/Special Instructions: 1. Recheck in the clinic with Dr. Santos within 1 week. 2. Multivitamin once a day [id number]. - Discharge Plan Home Medications: Home Meds Doxazosin [Cardura] 8 mg PO DAILY 08/06/13 [History] Lisinopril 40 mg PO DAILY 08/06/13 [History] Metoprolol Succinate [Toprol XL 100mg] 100 mg PO DAILY 08/06/13 [History] Simvastatin [Zocor] 20 mg PO DAILY 08/06/13 [History] metFORMIN [Glucophage] 1,000 mg PO BID 08/06/13 [History] Aspirin 325 mg PO DAILY 10/20/18 [History] Carboxymethylcellulose Sodium [Refresh Tears 0.5%] 1 drop EYEBOTH TID 10/20/18 [ History] Finasteride [Proscar] 5 mg PO DAILY 10/20/18 [History] Patient Handouts: Dehydration, Adult, [id number], Palpitations, Bduq-gs-Dubg , Fall Prevention in Hospitals, Adult, Venous Thromboembolism Prevention Forms: ED Department Discharge Referrals: Charles Santos MD [Primary Care Provider] - - Discharge Summary/Plan Comment DC Time >30 min.: No - Patient Data Vitals - Most Recent: Last Vital Signs Temp 97.9 F 10/21/18 06:01 Pulse 70 10/21/18 06:01 Resp 18 10/21/18 06:01 BP 164/82 H 10/21/18 06:01 Pulse Ox 97 10/21/18 06:01 Weight - Most Recent: 201 lb 5 oz Lab Results - Last 24 hrs: Laboratory Results - last 24 hr 10/20/18 10/20/18 10/20/18 Range/Units 09:11 09:11 09:11 WBC 7.0 (4.5-12.0) X10-3/uL RBC 4.36 (4.30-5.75) x10(6)uL Hgb 13.3 L (13.5-17.8) g/dL Hct 39.7 (30.0-51.3) % MCV 91.0 (80-96) fL MCH 30.5 (27.7-33.6) pg MCHC 33.5 (32.2-35.4) g/dL RDW 13.7 (11.5-15.5) % Plt Count 186 (125-369) X10(3)uL MPV 8.5 (7.4-10.4) fL Neut % (Auto) 63.8 (46-82) % Lymph % (Auto) 27.5 (13-37) % [place] % (Auto) 7.1 (4-12) % Eos % (Auto) 1 (1.0-5.0) % Baso % (Auto) 0 (0-2) % Neut # (Auto) 4.5 (1.6-8.3) # Lymph # (Auto) 1.9 (0.6-5.0) # [place] # (Auto) 0.5 (0.0-1.3) # Eos # (Auto) 0.1 (0.0-0.8) # Baso # (Auto) 0.0 (0.0-0.2) # PT 11.7 H (8.7-11.1) INR 1.21 H (0.89-1.13) Sodium 141 (135-145) mmol/L Potassium 4.0 (3.5-5.3) mmol/L Chloride 104 (100-110) mmol/L Carbon Dioxide 25 (21-32) mmol/L BUN 24 H (7-18) mg/dL Creatinine 1.0 (0.70-1.30) mg/dL Est Cr Clr Drug Dosing TNP Estimated GFR (MDRD) > 60 (>60) BUN/Creatinine Ratio 24.0 H (9-20) Glucose 162 H (80-116) mg/dL Calcium 8.7 (8.6-10.2) mg/dL Magnesium 1.1 L* (1.8-2.5) mg/dL Troponin I (<0.017-0.056) ng/mL Urine Color (YELLOW) Urine Appearance (CLEAR) Urine pH (5.0-6.5) Ur Specific [place] (1.010-1.025) Urine Protein (NEGATIVE) mg/dL Urine Glucose (UA) (NORMAL) mg/dL Urine Ketones (NEGATIVE) mg/dL Urine Occult Blood (NEGATIVE) Urine Nitrite (NEGATIVE) Urine Bilirubin (NEGATIVE) Urine Urobilinogen (NEGATIVE) mg/dL Ur Leukocyte Esterase (NEGATIVE) Urine RBC (0-5) Urine WBC (0-5) Ur Squamous Epith Cells (NS,R,O) Urine Bacteria (NS) 10/20/18 10/20/18 10/21/18 Range/Units 09:11 10:29 06:30 WBC (4.5-12.0) X10-3/uL RBC (4.30-5.75) x10(6)uL Hgb (13.5-17.8) g/dL Hct (30.0-51.3) % MCV (80-96) fL MCH (27.7-33.6) pg MCHC (32.2-35.4) g/dL RDW (11.5-15.5) % Plt Count (125-369) X10(3)uL MPV (7.4-10.4) fL Neut % (Auto) (46-82) % Lymph % (Auto) (13-37) % [place] % (Auto) (4-12) % Eos % (Auto) (1.0-5.0) % Baso % (Auto) (0-2) % Neut # (Auto) (1.6-8.3) # Lymph # (Auto) (0.6-5.0) # [place] # (Auto) (0.0-1.3) # Eos # (Auto) (0.0-0.8) # Baso # (Auto) (0.0-0.2) # PT (8.7-11.1) INR (0.89-1.13) Sodium (135-145) mmol/L Potassium (3.5-5.3) mmol/L Chloride (100-110) mmol/L Carbon Dioxide (21-32) mmol/L BUN (7-18) mg/dL Creatinine (0.70-1.30) mg/dL Est Cr Clr Drug Dosing Estimated GFR (MDRD) (>60) BUN/Creatinine Ratio (9-20) Glucose (80-116) mg/dL Calcium (8.6-10.2) mg/dL Magnesium (1.8-2.5) mg/dL Troponin I 0.019 0.035 (<0.017-0.056) ng/mL Urine Color Yellow (YELLOW) Urine Appearance Clear (CLEAR) Urine pH 5.0 (5.0-6.5) Ur Specific [place] 1.015 (1.010-1.025) Urine Protein Negative (NEGATIVE) mg/dL Urine Glucose (UA) Normal (NORMAL) mg/dL Urine Ketones Negative (NEGATIVE) mg/dL Urine Occult Blood Negative (NEGATIVE) Urine Nitrite Negative (NEGATIVE) Urine Bilirubin Negative (NEGATIVE) Urine Urobilinogen Normal (NEGATIVE) mg/dL Ur Leukocyte Esterase Negative (NEGATIVE) Urine RBC Not seen (0-5) Urine WBC 0-5 (0-5) Ur Squamous Epith Cells Occasional (NS,R,O) Urine Bacteria Rare H (NS) Med Orders - Current: Current Medications Acetaminophen (Tylenol) 650 mg PO Q4H PRN PRN Reason: Pain (mild 1-3) Last Admin: 10/21/18 05:46 Dose: 650 mg Enoxaparin Sodium (Lovenox) 30 mg SUBCUT Q24H KATTY Last Admin: 10/20/18 18:07 Dose: 30 mg Discontinued Medications Sodium Chloride (Normal Saline) 500 mls @ 999 mls/hr IV .BOLUS ONE Stop: 10/20/18 09:46 Last Admin: 10/20/18 09:27 Dose: 999 mls/hr Magnesium Sulfate 2 gm/ Premix 50 mls @ 150 mls/hr IV ONETIME ONE Stop: 10/20/18 09:48 Last Admin: 10/20/18 09:33 Dose: 150 mls/hr Sodium Chloride (Normal Saline) 1,000 mls @ 999 mls/hr IV .BOLUS ONE Stop: 10/20/18 10:58 Last Infusion: 10/20/18 10:25 Dose: 20 mls/hr Meclizine HCl (Antivert) 25 mg PO ONETIME STA Stop: 10/20/18 10:54 Last Admin: 10/20/18 11:29 Dose: 25 mg
[2018-10-21 11:15] VITALS: BP 175/92
== END 2018-10-21 09:30 | disposition home or self-care (01) ==
LOC: FB.ED 08:55 → FB.MS 12:46
PROVIDERS: ADMIT Family Medicine; ATTEND Family Medicine
DX: I48.91 Unspecified atrial fibrillation (principal); I95.9 Hypotension, unspecified; E86.0 Dehydration; E83.42 Hypomagnesemia; I10 Essential (primary) hypertension; E11.9 Type 2 diabetes mellitus without complications; K21.9 Gastro-esophageal reflux disease without esophagitis; Z87.891 Personal history of nicotine dependence; Z79.84 Long term (current) use of oral hypoglycemic drugs; Z79.899 Other long term (current) drug therapy
CPT/HCPCS: 36415; 80048; 81001; 83735; 84484; 85025; 85610; 93005; 96361; 96365; 96372; 99284; A9270; G0378; J1650; J3475; J7030; J7040

== ENCOUNTER 2018-12-23 04:26 | Observation (INO) | payer MEDICARE, BC ==
--- NOTE | 2018-12-23 04:58 | EDM.PDOC ---
ED HPI GENERAL MEDICAL PROBLEM - General Stated Complaint: chest pain Time Seen by Provider: 12/23/18 04:52 Source of Information: Reports: Patient, Family () History Limitations: Reports: No Limitations - History of Present Illness INITIAL COMMENTS - FREE TEXT/NARRATIVE: 88-year-old male who reports that he has had intermittent problems with "gassiness" for quite some time but these episodes seem to have gotten worse over the past month. At approximately 2 AM he awakened with this feeling of gassiness which she describes as a discomfort in his abdomen and feeling the need to belch to relieve pressure. In fact he would state that it is a pressure type feeling in his abdomen. At that time it was around 5/10. He got up and walked to go to the bathroom and he urinated but did not have a bowel movement. His awoke at approximately 3 AM with the patient sitting on the edge of the bed trying to belch. He did not have any shortness of breath associated with this. He was not sweating. His took his blood pressure several times and one time got a blood pressure of 80 systolic and another time at 112/70. His pulse rate was from 90 to 110 range. No nausea or vomiting. He also felt somewhat weak and dizzy with standing. He was able to walk though and his brought him to the emergency department via private vehicle. He states that he felt pretty normal during the day yesterday. He ate and drank normally. He also reports that he's been having intermittent diarrhea for the past few months. Sometimes, he feels that it is uncontrollable. He did not have a bowel movement today. The patient reports that the "gassiness" feeling has pretty much resolved and he feels improved. However when he was being stood to do orthostatics he was so dizzy that he couldn't stand. It should be noted, no, that his blood pressure was in the 170 systolic range. The patient and his are both really poor historians. No fevers. No chills. No arm or neck pain. No leg swelling. There are no other associated signs or symptoms. There are no other modifying factors. The patient was recently admitted (approximately 2 months ago) related to atrial fibrillation and he has recently been placed on Coumadin. 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: Other Medication(s) (Gas-X) - Related Data Allergies Allergy/AdvReac Type Severity Reaction Status Date / Time No Known Allergies Allergy Verified 12/23/18 07:09 Home Meds: Home Meds Doxazosin [Cardura] 8 mg PO DAILY 08/06/13 [History] Lisinopril 20 mg PO DAILY 08/06/13 [History] Metoprolol Succinate [Toprol XL 100mg] 100 mg PO DAILY 08/06/13 [History] Simvastatin [Zocor] 20 mg PO DAILY 08/06/13 [History] metFORMIN [Glucophage] 1,000 mg PO BID 08/06/13 [History] Carboxymethylcellulose Sodium [Refresh Tears 0.5%] 1 drop EYEBOTH TID 10/20/18 [ History] Finasteride [Proscar] 5 mg PO DAILY 10/20/18 [History] Multivitamin [Daily Bjorn] 1 each PO DAILY 12/23/18 [History] Warfarin [Coumadin] 5 mg PO DAILY 12/23/18 [History] Past Medical History HEENT History: Reports: Cataract, Impaired Vision Cardiovascular History: Reports: Arrhythmia (Atrial fibrillation), CAD, High Cholesterol, Hypertension, ID Gastrointestinal History: Reports: GERD, Hemorrhoids Musculoskeletal History: Reports: Arthritis, Back Pain, Chronic Endocrine/Metabolic History: Reports: Diabetes, Type II Hematologic History: Reports: Anticoagulation Therapy - Infectious Disease History Infectious Disease History: Reports: Chicken Pox, Measles, Mumps - Past Surgical History HEENT Surgical History: Reports: Cataract Surgery Cardiovascular Surgical History: Reports: Coronary Artery Stent GI Surgical History: Reports: Colonoscopy Endocrine Surgical History: Reports: None Musculoskeletal Surgical History: Reports: None Dermatological Surgical History: Reports: None Social & Family History - Family History Family Medical History: Noncontributory - Tobacco Use Smoking Status *Q: Former Smoker (Nonsmoker times the past 40-50 years.) - Caffeine Use Caffeine Use: Reports: Coffee - Alcohol Use Alcohol Use History: Yes Alcohol Use Frequency: Rarely (Has not had any alcohol for quite some time.) - Living Situation & Occupation Living situation: Reports: Occupation: Retired Social History Comment: He is here with his . His drove him to the hospital. They live alone in their own home. ED ROS GENERAL - Review of Systems Review Of Systems: See Below Constitutional: Reports: Weakness HEENT: Reports: No Symptoms Respiratory: Reports: No Symptoms Cardiovascular: Reports: No Symptoms GI/Abdominal: Reports: Abdominal Pain (Pressure; "gassiness"), Distension ( Bloated feeling) : Reports: No Symptoms Musculoskeletal: Reports: No Symptoms Skin: Reports: No Symptoms Neurological: Reports: Dizziness Hematologic/Lymphatic: Reports: Easy Bleeding (On chronic anticoagulation with Coumadin) Immunologic: Reports: No Symptoms ED EXAM, GENERAL - Physical Exam Exam: See Below Exam Limited By: No Limitations General Appearance: Alert, WD/WN, No Apparent Distress Eye Exam: Bilateral Eye: EOMI, Normal Inspection Ears: Normal External Exam Ear Exam: Bilateral Ear: Auricle Normal Nose: Normal Inspection, Normal Mucosa, No Blood Throat/Mouth: Normal Voice, No Airway Compromise, Other (Dry mucous membranes) Head: Atraumatic, Normocephalic Neck: Normal Inspection, Supple, Non-Tender, Full Range of Motion Respiratory/Chest: No Respiratory Distress, Lungs Clear, Normal Breath Sounds, No Accessory Muscle Use, Chest Non-Tender Cardiovascular: Normal Peripheral Pulses, No JVD, Irregularly Irregular Peripheral Pulses: 2+: Radial (L), Radial (R) GI/Abdominal: Normal Bowel Sounds, Soft, Non-Tender, No Mass Extremities: Normal Inspection, Normal Range of Motion, Non-Tender, No Pedal Edema, Normal Capillary Refill Neurological: Alert, Oriented, CN II-XII Intact, No Motor/Sensory Deficits Skin Exam: Warm, Dry, Intact, Normal Color, No Rash EKG INTERPRETATION EKG Date: 12/23/18 Time: 04:45 Rhythm: A-Fib (Intermittent versus accelerated junctional) Rate (Beats/Min): 93 [place]: LAD-Left [place] Deviation P-Wave: Absent (Intermittent P waves) QRS: Normal (But with poor R-wave progression) ST-T: Normal QT: Prolonged Comparison: Other: (EKG on 10/21/2018 showed sinus rhythm with a first-degree AV block. It should be noted that the patient was seen on the monitor to have a sinus rhythm with a first degree AV block but his rhythm seemed to go from that to a junctional to A. fib.) Course - Vital Signs Last Recorded V/S: Last Vital Signs Temp 36.4 C 12/23/18 04:26 Pulse 88 12/23/18 04:26 Resp 15 12/23/18 04:26 BP 140/71 12/23/18 04:26 Pulse Ox 94 L 12/23/18 04:26 Orthostatic Blood Pressure [ 175/144 Sitting] Orthostatic Blood Pressure [ 145/77 Supine] - Orders/Labs/Meds Orders: Active Orders 24 hr Category Date Time Status Admission Status [Patient Status] [ADT] Routine ADT 12/23/18 06:41 Active Anticoag Warfarin Education *Q [RC] DAILY Care 12/23/18 06:46 Active Blood Glucose Check, Bedside [RC] QIDACANDBED Care 12/23/18 06:46 Active Cardiac Monitoring [RC] .As Directed Care 12/23/18 06:41 Active EKG Documentation Completion [RC] ASDIRECTED Care 12/23/18 05:22 Active Height and Weight [RC] DAILY Care 12/23/18 06:46 Active Intake and Output [RC] QSHIFT Care 12/23/18 06:47 Active Oxygen Therapy [RC] PRN Care 12/23/18 06:46 Active Pulse Oximetry [RC] PRN Care 12/23/18 06:47 Active VTE/DVT Education [RC] Per Unit Routine Care 12/23/18 06:46 Active Vital Signs [RC] Q4H Care 12/23/18 06:46 Active Consistent Carbohydrate Diet [DIET] Diet 12/23/18 Breakfast Active Chest 1V Frontal [CR] Stat Exams 12/23/18 05:23 Taken MAGNESIUM [CHEM] Routine Lab 12/23/18 11:30 Ordered TROPONIN I [CHEM] Routine Lab 12/23/18 11:30 Ordered TROPONIN I [CHEM] Timed Lab 12/24/18 17:30 Ordered Acetaminophen [Tylenol] Med 12/23/18 06:46 Active 650 mg PO Q4H PRN Magnesium Sulfate/Water [Magnesium Sulfate in Water Med 12/23/18 06:37 Active Premix] 2 gm Premix Bag 1 bag IV ONETIME Ondansetron [Zofran ODT] Med 12/23/18 06:46 Active 4 mg PO Q6H PRN Ondansetron [Zofran] Med 12/23/18 06:46 Active 4 mg IV Q6H PRN Sodium Chloride 0.9% [Normal Saline] 1,000 ml Med 12/23/18 07:00 Active IV ASDIRECTED Sodium Chloride 0.9% [Saline Flush] Med 12/23/18 05:22 Active 10 ml FLUSH ASDIRECTED PRN Peripheral IV Insertion Adult [OM.PC] Routine Oth 12/23/18 05:22 Ordered Resuscitation Status Routine Resus Stat 12/23/18 06:46 Ordered EKG 12 Lead [EK] Routine Ther 12/23/18 05:22 Ordered Medication Orders Acetaminophen (Tylenol) 650 mg PO Q4H PRN PRN Reason: Pain (Mild 1-3)/fever Magnesium Sulfate 2 gm/ Premix 50 mls @ 150 mls/hr IV ONETIME ONE Stop: 12/23/18 06:56 Last Admin: 12/23/18 06:40 Dose: 150 mls/hr Sodium Chloride (Normal Saline) 1,000 mls @ 75 mls/hr IV ASDIRECTED [facility] Ondansetron HCl (Zofran Odt) 4 mg PO Q6H PRN PRN Reason: nausea, able to take PO Ondansetron HCl (Zofran) 4 mg IV Q6H PRN PRN Reason: Nausea/Vomiting Sodium Chloride (Saline Flush) 10 ml FLUSH ASDIRECTED PRN PRN Reason: Keep Vein Open Last Admin: 12/23/18 05:00 Dose: 10 ml Labs: Laboratory Tests 12/23/18 12/23/18 12/23/18 Range/Units 05:30 05:30 05:30 WBC 7.3 (4.5-12.0) X10-3/uL RBC 4.15 L (4.30-5.75) x10(6)uL Hgb 12.6 L (13.5-17.8) g/dL Hct 38.4 (30.0-51.3) % MCV 92.4 (80-96) fL MCH 30.3 (27.7-33.6) pg MCHC 32.8 (32.2-35.4) g/dL RDW 13.6 (11.5-15.5) % Plt Count 194 (125-369) X10(3)uL MPV 8.4 (7.4-10.4) fL Neut % (Auto) 66.5 (46-82) % Lymph % (Auto) 24.6 (13-37) % [place] % (Auto) 7.3 (4-12) % Eos % (Auto) 1 (1.0-5.0) % Baso % (Auto) 0 (0-2) % Neut # (Auto) 4.9 (1.6-8.3) # Lymph # (Auto) 1.8 (0.6-5.0) # [place] # (Auto) 0.5 (0.0-1.3) # Eos # (Auto) 0.1 (0.0-0.8) # Baso # (Auto) 0.0 (0.0-0.2) # PT 22.5 H (8.7-11.1) INR 2.34 H (0.89-1.13) Sodium 144 (135-145) mmol/L Potassium 3.9 (3.5-5.3) mmol/L Chloride 108 (100-110) mmol/L Carbon Dioxide 25 (21-32) mmol/L BUN 20 H (7-18) mg/dL Creatinine 1.0 (0.70-1.30) mg/dL Est Cr Clr Drug Dosing 54.97 mL/min Estimated GFR (MDRD) > 60 (>60) BUN/Creatinine Ratio 20.0 (9-20) Glucose 132 H (80-116) mg/dL Calcium 8.6 (8.6-10.2) mg/dL Magnesium 1.2 L* (1.8-2.5) mg/dL Total Bilirubin 0.5 (0.1-1.3) mg/dL AST 20 (5-25) IU/L ALT 30 (12-36) U/L Alkaline Phosphatase 76 (56-112) IU/L Troponin I (<0.017-0.056) ng/mL Total Protein 6.5 (6.0-8.0) g/dL Albumin 3.1 (2.9-4.5) g/dL Globulin 3.4 g/dL Albumin/Globulin Ratio 0.9 Amylase (25-115) U/L Urine Color (YELLOW) Urine Appearance (CLEAR) Urine pH (5.0-6.5) Ur Specific [place] (1.010-1.025) Urine Protein (NEGATIVE) mg/dL Urine Glucose (UA) (NORMAL) mg/dL Urine Ketones (NEGATIVE) mg/dL Urine Occult Blood (NEGATIVE) Urine Nitrite (NEGATIVE) Urine Bilirubin (NEGATIVE) Urine Urobilinogen (NEGATIVE) mg/dL Ur Leukocyte Esterase (NEGATIVE) Urine RBC (0-5) Urine WBC (0-5) Ur Squamous Epith Cells (NS,R,O) Urine Bacteria (NS) 12/23/18 12/23/18 12/23/18 Range/Units 05:30 05:30 06:21 WBC (4.5-12.0) X10-3/uL RBC (4.30-5.75) x10(6)uL Hgb (13.5-17.8) g/dL Hct (30.0-51.3) % MCV (80-96) fL MCH (27.7-33.6) pg MCHC (32.2-35.4) g/dL RDW (11.5-15.5) % Plt Count (125-369) X10(3)uL MPV (7.4-10.4) fL Neut % (Auto) (46-82) % Lymph % (Auto) (13-37) % [place] % (Auto) (4-12) % Eos % (Auto) (1.0-5.0) % Baso % (Auto) (0-2) % Neut # (Auto) (1.6-8.3) # Lymph # (Auto) (0.6-5.0) # [place] # (Auto) (0.0-1.3) # Eos # (Auto) (0.0-0.8) # Baso # (Auto) (0.0-0.2) # PT (8.7-11.1) INR (0.89-1.13) Sodium (135-145) mmol/L Potassium (3.5-5.3) mmol/L Chloride (100-110) mmol/L Carbon Dioxide (21-32) mmol/L BUN (7-18) mg/dL Creatinine (0.70-1.30) mg/dL Est Cr Clr Drug Dosing mL/min Estimated GFR (MDRD) (>60) BUN/Creatinine Ratio (9-20) Glucose (80-116) mg/dL Calcium (8.6-10.2) mg/dL Magnesium (1.8-2.5) mg/dL Total Bilirubin (0.1-1.3) mg/dL AST (5-25) IU/L ALT (12-36) U/L Alkaline Phosphatase (56-112) IU/L Troponin I < 0.017 L (<0.017-0.056) ng/mL Total Protein (6.0-8.0) g/dL Albumin (2.9-4.5) g/dL Globulin g/dL Albumin/Globulin Ratio Amylase 33 (25-115) U/L Urine Color Yellow (YELLOW) Urine Appearance Clear (CLEAR) Urine pH 5.0 (5.0-6.5) Ur Specific [place] 1.010 (1.010-1.025) Urine Protein Negative (NEGATIVE) mg/dL Urine Glucose (UA) Normal (NORMAL) mg/dL Urine Ketones Negative (NEGATIVE) mg/dL Urine Occult Blood Negative (NEGATIVE) Urine Nitrite Negative (NEGATIVE) Urine Bilirubin Negative (NEGATIVE) Urine Urobilinogen Normal (NEGATIVE) mg/dL Ur Leukocyte Esterase Negative (NEGATIVE) Urine RBC 0-5 (0-5) Urine WBC 0-5 (0-5) Ur Squamous Epith Cells Few H (NS,R,O) Urine Bacteria Occasional H (NS) Meds: Medications Generic Name Dose Route Start Last Admin Trade Name Freq PRN Reason Stop Dose Admin Acetaminophen 650 mg 12/23/18 06:46 Tylenol PO Q4H PRN Pain (Mild 1-3)/fever Magnesium Sulfate 2 gm/ Premix 50 mls @ 150 mls/hr 12/23/18 06:37 12/23/18 06 :40 IV 12/23/18 06:56 150 mls/hr ONETIME ONE Administration Sodium Chloride 1,000 mls @ 75 mls/hr 12/23/18 07:00 Normal Saline IV ASDIRECTED KATTY Ondansetron HCl 4 mg 12/23/18 06:46 Zofran Odt PO Q6H PRN nausea, able to take PO Ondansetron HCl 4 mg 12/23/18 06:46 Zofran IV Q6H PRN Nausea/Vomiting Sodium Chloride 10 ml 12/23/18 05:22 12/23/18 05:00 Saline Flush FLUSH 10 ml ASDIRECTED PRN Administration Keep Vein Open Discontinued Medications Generic Name Dose Route Start Last Admin Trade Name Naresh PRN Reason Stop Dose Admin Sodium Chloride 500 mls @ 999 mls/hr 12/23/18 05:23 12/23/18 05:39 Normal Saline IV 12/23/18 05:53 999 mls/hr .BOLUS ONE Administration - Radiology Interpretation Free Text/Narrative:: Portable chest x-ray shows left pleural effusion but no other acute abnormality. - Re-Assessments/Exams Free Text/Narrative Re-Assessment/Exam: 12/23/18 06:56: Patient's blood tests were reassuring except for a low magnesium his initial troponin was negative. His INR is therapeutic. His EKG was unchanged from previous but on the monitor he had intermittent episodes where he would go into what appeared to be first-degree and then second-degree heart block with transition to either a junctional rhythm or atrial fibrillation. His heart rate stayed in the 80-100 range. He had had a history of low blood pressure at home but did not manifest that in the emergency department and in fact his blood pressure was somewhat elevated. Upon standing he was quite dizzy and could not stand without significant assistance. His abdominal discomfort was resolved by the time he presented to the emergency department but this history of intermittent "gassiness" is somewhat concerning for an anginal equivalent. With the abdominal discomfort and concern for it being an anginal equivalent, what appears to be intermittent heart block on EKG telemetry and his low magnesium, I feel that he will need admission for continued close cardiac monitoring and serial troponins. I feel that he will be at increased morbidity and even mortality if discharged and is likely had a readmission in the short-term would be high. Therefore he will be admitted. I will discuss the patient's case with Dr. Jacobsen who will be assuming care the patient at 7 AM today. I have discussed this with the patient and with his and they are in agreement with plans for admission. It should also be noted that the patient reports that he is a FULL CODE in the event of a cardiopulmonary arrest. 12/23/18 07:11: I discussed patient's case with Dr. Jacobsen. Departure - Departure Time of Disposition: 07:05 Disposition: Refer to Observation Condition: Fair (Stable) Clinical Impression: Heart block, Hypomagnesemia, Chronic anticoagulation Abdominal pain Qualifiers: Abdominal location: generalized Qualified Code(s): R10.84 - Generalized abdominal pain - Discharge Information - My Orders Last 24 Hours: My Active Orders 12/23/18 05:22 EKG Documentation Completion [RC] ASDIRECTED Sodium Chloride 0.9% [Saline Flush] 10 ml FLUSH ASDIRECTED PRN Peripheral IV Insertion Adult [OM.PC] Routine EKG 12 Lead [EK] Routine 12/23/18 05:23 Chest 1V Frontal [CR] Stat 12/23/18 06:37 Magnesium Sulfate/Water [Magnesium Sulfate in Water Premix] 2 gm Premix Bag 1 bag IV ONETIME 12/23/18 06:41 Admission Status [Patient Status] [ADT] Routine Cardiac Monitoring [RC] .As Directed 12/23/18 06:46 Anticoag Warfarin Education *Q [RC] DAILY Blood Glucose Check, Bedside [RC] QIDACANDBED Height and Weight [RC] DAILY Oxygen Therapy [RC] PRN VTE/DVT Education [RC] Per Unit Routine Vital Signs [RC] Q4H Acetaminophen [Tylenol] 650 mg PO Q4H PRN Ondansetron [Zofran ODT] 4 mg PO Q6H PRN Ondansetron [Zofran] 4 mg IV Q6H PRN Resuscitation Status Routine 12/23/18 06:47 Intake and Output [RC] QSHIFT Pulse Oximetry [RC] PRN 12/23/18 07:00 Sodium Chloride 0.9% [Normal Saline] 1,000 ml IV ASDIRECTED 12/23/18 11:30 MAGNESIUM [CHEM] Routine TROPONIN I [CHEM] Routine 12/23/18 Breakfast Consistent Carbohydrate Diet [DIET] 12/24/18 17:30 TROPONIN I [CHEM] Timed - Assessment/Plan Last 24 Hours: My Active Orders 12/23/18 05:22 EKG Documentation Completion [RC] ASDIRECTED Sodium Chloride 0.9% [Saline Flush] 10 ml FLUSH ASDIRECTED PRN Peripheral IV Insertion Adult [OM.PC] Routine EKG 12 Lead [EK] Routine 12/23/18 05:23 Chest 1V Frontal [CR] Stat 12/23/18 06:37 Magnesium Sulfate/Water [Magnesium Sulfate in Water Premix] 2 gm Premix Bag 1 bag IV ONETIME 12/23/18 06:41 Admission Status [Patient Status] [ADT] Routine Cardiac Monitoring [RC] .As Directed 12/23/18 06:46 Anticoag Warfarin Education *Q [RC] DAILY Blood Glucose Check, Bedside [RC] QIDACANDBED Height and Weight [RC] DAILY Oxygen Therapy [RC] PRN VTE/DVT Education [RC] Per Unit Routine Vital Signs [RC] Q4H Acetaminophen [Tylenol] 650 mg PO Q4H PRN Ondansetron [Zofran ODT] 4 mg PO Q6H PRN Ondansetron [Zofran] 4 mg IV Q6H PRN Resuscitation Status Routine 12/23/18 06:47 Intake and Output [RC] QSHIFT Pulse Oximetry [RC] PRN 12/23/18 07:00 Sodium Chloride 0.9% [Normal Saline] 1,000 ml IV ASDIRECTED 12/23/18 11:30 MAGNESIUM [CHEM] Routine TROPONIN I [CHEM] Routine 12/23/18 Breakfast Consistent Carbohydrate Diet [DIET] 12/24/18 17:30 TROPONIN I [CHEM] Timed
[2018-12-23] MEDS ORDERED: Sodium Chloride 0.9% 10 ML Syringe FLUSH PRN (05:22)
[2018-12-23] MEDS ORDERED: Sodium Chloride 0.9% 500 ML IV ONE (05:23)
[2018-12-23] MEDS ORDERED: Magnesium Sulfate/Water 2 GM in Premix Bag 1 BAG IV ONE (06:37)
[2018-12-23] MEDS ORDERED: Acetaminophen 325 MG Tab PO PRN (06:46)
[2018-12-23] MEDS ORDERED: Ondansetron 4 MG/2 ML SDV IV PRN (06:46)
[2018-12-23] MEDS ORDERED: Ondansetron 4 MG Tab.DIS PO PRN (06:46)
[2018-12-23] MEDS ORDERED: metFORMIN 1,000 MG Tab *PTOM PO SCH (09:00)
[2018-12-23] MEDS ORDERED: metFORMIN 500 MG Tab.ER PO SCH (09:00)
--- NOTE | 2018-12-23 09:02 | PCM.HP ---
H&P History of Present Illness - General Date of Service: 12/23/18 Admit Problem/Dx: Admission Diagnosis/Problem Admission Diagnosis/Problem Abdominal pain Source of Information: Patient, Family History Limitations: Reports: Other (poor historian) - History of Present Illness Initial Comments - Free Text/Narative: 88 yr old male who presented to ER this morning with intermittent "gassiness", felt like he needed to belch and his found him sitting on the edge of the bed at 3am. He had gotten up at 2 am to go to the bathroom, urinated but no bowel movement. Describes the feeling as a discomfort, pressure, feeling like he needed to relieve it by belching. Rates at 5/10. Denies any shortness of breath, diaphoresis, nausea, vomiting, diarrhea. No neck, shoulder, or arm pain. His had taken his blood pressures several times and got a wide range of readings: systolic 80s to 110s and pulse was 90-110 range. He did feel weak and dizzy with standing. He had been having intermittent diarrhea for the past few months were he feels like he can hardly make it to the bathroom. He is on Metformin 1000 mg bid, for many years and dose has not been changed recently. He ate and drank normally yesterday. In ER they tried to do orthostatic pressures and he was so dizzy he couldn't stand. His blood pressure in ER was systolic 170. He reports low back pain with numbness down his left leg which he reports is new but denies pain with it. Last admission was 2 months ago for atrial fibrillation and started on Coumadin at that time. Onset of Symptoms: Reports: Today Symptom Onset Date: 12/23/18 Symptom Onset Time: 02:00 Duration of Symptoms: Reports: Improving Location: Reports: Abdomen Quality: Reports: Pressure Severity: Moderate Improves with: Reports: None Worsens with: Reports: None Associated Symptoms: Denies: Chest Pain, Diaphoresis, Fever/Chills, Nausea/ Vomiting, Shortness of Breath - Related Data Allergies/Adverse Reactions: Allergies Allergy/AdvReac Type Severity Reaction Status Date / Time No Known Allergies Allergy Verified 12/23/18 07:09 Home Medications: Home Meds RX: Doxazosin [Cardura] 8 mg PO BEDTIME 08/06/13 [History] RX: Lisinopril 20 mg PO DAILY 08/06/13 [History] RX: Metoprolol Succinate [Toprol XL 100mg] 100 mg PO DAILY 08/06/13 [History] RX: Simvastatin [Zocor] 20 mg PO BEDTIME 08/06/13 [History] RX: metFORMIN [Glucophage] 1,000 mg PO BID 08/06/13 [History] RX: Carboxymethylcellulose Sodium [Refresh Tears 0.5%] 1 drop EYEBOTH TID [History] RX: Finasteride [Proscar] 5 mg PO BEDTIME 10/20/18 [History] Multivitamin [Daily Bjorn] 1 each PO DAILY 12/23/18 [History] RX: Warfarin [Coumadin] 5 mg PO SUTUTHSA 12/23/18 [History] Warfarin [Coumadin] 2.5 mg PO MOWEFR 12/23/18 [History] Past Medical History HEENT History: Reports: Cataract, Impaired Vision Cardiovascular History: Reports: Afib, Arrhythmia (Atrial fibrillation), CAD, High Cholesterol, Hypertension, [place] Respiratory History: Reports: SOB Gastrointestinal History: Reports: GERD, Hemorrhoids Musculoskeletal History: Reports: Arthritis, Back Pain, Chronic Endocrine/Metabolic History: Reports: Diabetes, Type II Hematologic History: Reports: Anticoagulation Therapy - Infectious Disease History Infectious Disease History: Reports: Chicken Pox, Measles, Mumps - Past Surgical History HEENT Surgical History: Reports: Cataract Surgery Cardiovascular Surgical History: Reports: Coronary Artery Stent GI Surgical History: Reports: Colonoscopy Endocrine Surgical History: Reports: None Musculoskeletal Surgical History: Reports: None Dermatological Surgical History: Reports: None Social & Family History - Family History Family Medical History: Noncontributory - Tobacco Use Smoking Status *Q: Former Smoker Used Tobacco, but Quit: Yes Month/Year Tobacco Last Used: 50 Tobacco Use Comment: quit smoking 40-50 years ago - Caffeine Use Caffeine Use: Reports: Coffee - Recreational Drug Use Recreational Drug Use: No - Living Situation & Occupation Living situation: Reports: Occupation: Retired H&P Review of Systems - Review of Systems: Review Of Systems: See Below General: Reports: Weakness. Denies: Fever, Chills, Night Sweats, Diaphoresis, Decreased Appetite HEENT: Reports: No Symptoms Pulmonary: Denies: Shortness of Breath Cardiovascular: Reports: Lightheadedness. Denies: Chest Pain, Dyspnea on Exertion, Edema Gastrointestinal: Reports: Abdominal Pain, Diarrhea. Denies: Black Stool, Bloody Stool, Constipation, Decreased Appetite, Nausea, Vomiting Genitourinary: Denies: Dysuria, Frequency Musculoskeletal: Reports: Back Pain. Denies: Neck Pain, Shoulder Pain, Arm Pain , Leg Pain Skin: Reports: Bruising Psychiatric: Reports: No Symptoms Neurological: Reports: Dizziness, Numbness, Tingling (left leg). Denies: Syncope Hematologic/Lymphatic: Reports: Easy Bruising. Denies: Easy Bleeding Exam - Exam Exam: See Below - Vital Signs Vital Signs: Last Vital Signs Temp 35.3 C 12/23/18 08:00 Pulse 78 12/23/18 08:00 Resp 16 12/23/18 08:00 BP 115/66 12/23/18 08:00 Pulse Ox 96 12/23/18 08:00 Orthostatic Blood Pressure [ 175/144 Sitting] Orthostatic Blood Pressure [ 145/77 Supine] Weight: 90.265 kg - Exam General: Alert, Oriented, Cooperative Neck: Supple, Trachea Midline, +2 Carotid Pulse wo Bruit Lungs: Clear to Auscultation, Normal Respiratory Effort Cardiovascular: Regular Rate, Regular Rhythm. No: Systolic Murmur, Diastolic Murmur GI/Abdominal Exam: Normal Bowel Sounds, Soft, Non-Tender, No Distention, Other ( ventral hernia) Extremities: No Pedal Edema Peripheral Pulses: 2+: Radial (L), Radial (R), Dorsalis Pedis (L), Dorsalis Pedis (R) Skin: Warm, Dry, Intact, Ecchymosis Neuro Extensive - Mental Status: Alert, Oriented x3 Psychiatric: Normal Affect - Patient Data Lab Results Last 24 hrs: Laboratory Results - last 24 hr 12/23/18 12/23/18 12/23/18 Range/Units 05:30 05:30 05:30 WBC 7.3 (4.5-12.0) X10-3/uL RBC 4.15 L (4.30-5.75) x10(6)uL Hgb 12.6 L (13.5-17.8) g/dL Hct 38.4 (30.0-51.3) % MCV 92.4 (80-96) fL MCH 30.3 (27.7-33.6) pg MCHC 32.8 (32.2-35.4) g/dL RDW 13.6 (11.5-15.5) % Plt Count 194 (125-369) X10(3)uL MPV 8.4 (7.4-10.4) fL Neut % (Auto) 66.5 (46-82) % Lymph % (Auto) 24.6 (13-37) % Randolph % (Auto) 7.3 (4-12) % Eos % (Auto) 1 (1.0-5.0) % Baso % (Auto) 0 (0-2) % Neut # (Auto) 4.9 (1.6-8.3) # Lymph # (Auto) 1.8 (0.6-5.0) # Randolph # (Auto) 0.5 (0.0-1.3) # Eos # (Auto) 0.1 (0.0-0.8) # Baso # (Auto) 0.0 (0.0-0.2) # PT 22.5 H (8.7-11.1) INR 2.34 H (0.89-1.13) Sodium 144 (135-145) mmol/L Potassium 3.9 (3.5-5.3) mmol/L Chloride 108 (100-110) mmol/L Carbon Dioxide 25 (21-32) mmol/L BUN 20 H (7-18) mg/dL Creatinine 1.0 (0.70-1.30) mg/dL Est Cr Clr Drug Dosing 54.97 mL/min Estimated GFR (MDRD) > 60 (>60) BUN/Creatinine Ratio 20.0 (9-20) Glucose 132 H (80-116) mg/dL Calcium 8.6 (8.6-10.2) mg/dL Magnesium 1.2 L* (1.8-2.5) mg/dL Total Bilirubin 0.5 (0.1-1.3) mg/dL AST 20 (5-25) IU/L ALT 30 (12-36) U/L Alkaline Phosphatase 76 (56-112) IU/L Troponin I (<0.017-0.056) ng/mL Total Protein 6.5 (6.0-8.0) g/dL Albumin 3.1 (2.9-4.5) g/dL Globulin 3.4 g/dL Albumin/Globulin Ratio 0.9 Amylase (25-115) U/L Urine Color (YELLOW) Urine Appearance (CLEAR) Urine pH (5.0-6.5) Ur Specific [place] (1.010-1.025) Urine Protein (NEGATIVE) mg/dL Urine Glucose (UA) (NORMAL) mg/dL Urine Ketones (NEGATIVE) mg/dL Urine Occult Blood (NEGATIVE) Urine Nitrite (NEGATIVE) Urine Bilirubin (NEGATIVE) Urine Urobilinogen (NEGATIVE) mg/dL Ur Leukocyte Esterase (NEGATIVE) Urine RBC (0-5) Urine WBC (0-5) Ur Squamous Epith Cells (NS,R,O) Urine Bacteria (NS) 12/23/18 12/23/18 12/23/18 Range/Units 05:30 05:30 06:21 WBC (4.5-12.0) X10-3/uL RBC (4.30-5.75) x10(6)uL Hgb (13.5-17.8) g/dL Hct (30.0-51.3) % MCV (80-96) fL MCH (27.7-33.6) pg MCHC (32.2-35.4) g/dL RDW (11.5-15.5) % Plt Count (125-369) X10(3)uL MPV (7.4-10.4) fL Neut % (Auto) (46-82) % Lymph % (Auto) (13-37) % Randolph % (Auto) (4-12) % Eos % (Auto) (1.0-5.0) % Baso % (Auto) (0-2) % Neut # (Auto) (1.6-8.3) # Lymph # (Auto) (0.6-5.0) # Randolph # (Auto) (0.0-1.3) # Eos # (Auto) (0.0-0.8) # Baso # (Auto) (0.0-0.2) # PT (8.7-11.1) INR (0.89-1.13) Sodium (135-145) mmol/L Potassium (3.5-5.3) mmol/L Chloride (100-110) mmol/L Carbon Dioxide (21-32) mmol/L BUN (7-18) mg/dL Creatinine (0.70-1.30) mg/dL Est Cr Clr Drug Dosing mL/min Estimated GFR (MDRD) (>60) BUN/Creatinine Ratio (9-20) Glucose (80-116) mg/dL Calcium (8.6-10.2) mg/dL Magnesium (1.8-2.5) mg/dL Total Bilirubin (0.1-1.3) mg/dL AST (5-25) IU/L ALT (12-36) U/L Alkaline Phosphatase (56-112) IU/L Troponin I < 0.017 L (<0.017-0.056) ng/mL Total Protein (6.0-8.0) g/dL Albumin (2.9-4.5) g/dL Globulin g/dL Albumin/Globulin Ratio Amylase 33 (25-115) U/L Urine Color Yellow (YELLOW) Urine Appearance Clear (CLEAR) Urine pH 5.0 (5.0-6.5) Ur Specific [place] 1.010 (1.010-1.025) Urine Protein Negative (NEGATIVE) mg/dL Urine Glucose (UA) Normal (NORMAL) mg/dL Urine Ketones Negative (NEGATIVE) mg/dL Urine Occult Blood Negative (NEGATIVE) Urine Nitrite Negative (NEGATIVE) Urine Bilirubin Negative (NEGATIVE) Urine Urobilinogen Normal (NEGATIVE) mg/dL Ur Leukocyte Esterase Negative (NEGATIVE) Urine RBC 0-5 (0-5) Urine WBC 0-5 (0-5) Ur Squamous Epith Cells Few H (NS,R,O) Urine Bacteria Occasional H (NS) Result Diagrams: 12/23/18 05:30 12/23/18 05:30 EKG INTERPRETATION EKG Interpretation Comments: see previous interpretation by Dr Dawson - Problem List (1) Abdominal pain SNOMED Code(s): 49643064 ICD Code: R10.9 - UNSPECIFIED ABDOMINAL PAIN Status: Acute Current Visit : Yes Qualifiers: Abdominal location: generalized Qualified Code(s): R10.84 - Generalized abdominal pain (2) Chronic anticoagulation SNOMED Code(s): 492547877 ICD Code: Z79.01 - SECOND CRUSHER (CURRENT) USE OF ANTICOAGULANTS Status: Chronic Current Visit: Yes (3) Heart block SNOMED Code(s): 152208824 ICD Code: I45.9 - CONDUCTION DISORDER, UNSPECIFIED Status: Chronic Current Visit: Yes (4) A-fib SNOMED Code(s): 01303032 ICD Code: I48.91 - UNSPECIFIED ATRIAL FIBRILLATION Status: Chronic Current Visit: No Problem List Initiated/Reviewed/Updated: Yes Orders Last 24hrs: Active Orders 24 hr Category Date Time Status Admission Status [Patient Status] [ADT] Routine ADT 12/23/18 06:41 Active Anticoag Warfarin Education *Q [RC] DAILY Care 12/23/18 06:46 Active Blood Glucose Check, Bedside [RC] QIDACANDBED Care 12/23/18 06:46 Active Cardiac Monitoring [RC] .As Directed Care 12/23/18 06:41 Active Height and Weight [RC] 06 Care 12/23/18 06:46 Active Intake and Output [RC] QSHIFT Care 12/23/18 06:47 Active Oxygen Therapy [RC] .PRN Care 12/23/18 06:46 Active Pulse Oximetry [RC] .PRN Care 12/23/18 06:47 Active VTE/DVT Education [RC] Per Unit Routine Care 12/23/18 06:46 Active Vital Signs [RC] 00,04,08,12,16,20 Care 12/23/18 06:46 Active Consistent Carbohydrate Diet [DIET] Diet 12/23/18 Breakfast Active Chest 1V Frontal [CR] Stat Exams 12/23/18 05:23 Taken MAGNESIUM [CHEM] Routine Lab 12/23/18 11:30 Ordered TROPONIN I [CHEM] Routine Lab 12/23/18 11:30 Ordered TROPONIN I [CHEM] Timed Lab 12/24/18 17:30 Ordered Acetaminophen [Tylenol] Med 12/23/18 06:46 Active 650 mg PO Q4H PRN Carboxymethylcellulose Sodium [Refresh Tears 0.5%] Med 12/23/18 09:00 Ordered DOSE ml EYEBOTH TID Finasteride [Proscar] Med 12/23/18 21:00 Active 5 mg PO BEDTIME Lisinopril [Prinivil] Med 12/23/18 09:00 Active 20 mg PO DAILY Multivitamins w-Iron/Ca/FA/Min [Thera M Plus] Med 12/23/18 09:00 Active 1 tab PO DAILY Non-Formulary Medication [NF Drug] Med 12/23/18 21:00 Active 0 each PO BEDTIME Non-Formulary Medication [NF Drug] Med 12/23/18 09:00 Active 0 each PO DAILY Ondansetron [Zofran ODT] Med 12/23/18 06:46 Active 4 mg PO Q6H PRN Ondansetron [Zofran] Med 12/23/18 06:46 Active 4 mg IV Q6H PRN Simvastatin [Zocor] Med 12/23/18 21:00 Active 20 mg PO BEDTIME Sodium Chloride 0.9% [Normal Saline] 1,000 ml Med 12/23/18 07:00 Active IV ASDIRECTED Sodium Chloride 0.9% [Saline Flush] Med 12/23/18 05:22 Active 10 ml FLUSH ASDIRECTED PRN Warfarin [Coumadin] Med 12/23/18 16:00 Ordered 5 mg PO DAILY@1600 metFORMIN [Glucophage XR] Med 12/23/18 09:00 Active 1,000 mg PO BIDMEALS Peripheral IV Insertion Adult [OM.PC] Routine Oth 12/23/18 05:22 Ordered Resuscitation Status Routine Resus Stat 12/23/18 06:46 Ordered EKG 12 Lead [EK] Routine Ther 12/23/18 05:22 Stop Req Medication Orders Acetaminophen (Tylenol) 650 mg PO Q4H PRN PRN Reason: Pain (Mild 1-3)/fever Artificial Tears (Refresh Tears 0.5%) ml EYEBOTH TID KATTY Finasteride (Proscar) 5 mg PO BEDTIME KATTY Sodium Chloride (Normal Saline) 1,000 mls @ 75 mls/hr IV ASDIRECTED KATTY Lisinopril (Prinivil) 20 mg PO DAILY KATTY Metformin HCl (Glucophage Xr) 1,000 mg PO BIDMEALS [facility] Multivitamins/Minerals (Thera M Plus) 1 tab PO DAILY [facility] Doxazosin 8mg 0 each PO BEDTIME KATTY Metoprolol 200mg * (Ptom) 0 each PO DAILY [facility] Ondansetron HCl (Zofran Odt) 4 mg PO Q6H PRN PRN Reason: nausea, able to take PO Ondansetron HCl (Zofran) 4 mg IV Q6H PRN PRN Reason: Nausea/Vomiting Simvastatin (Zocor) 20 mg PO BEDTIME KATTY Sodium Chloride (Saline Flush) 10 ml FLUSH ASDIRECTED PRN PRN Reason: Keep Vein Open Last Admin: 12/23/18 05:00 Dose: 10 ml Warfarin Sodium (Coumadin) 5 mg PO DAILY@1600 [facility] Assessment/Plan Comment:: 1. Admit for observation for serial cardiac enzymes. 2. Cardiac monitoring for rhythm changes seen in ER, was fluctuating between 1 & 2 deg heart block & junctional rhythm. 3. Change Metformin 1000 mg bid to extended release version to see if this helps with his gas & diarrhea. 4. If enzymes remain normal and no further issues will discharge tomorrow. 5. Pharmacy to do Warfarin sliding scale.
[2018-12-23] MEDS: METOPROLOL 200 MG PO SCH (09:32)
[2018-12-23] MEDS: Multivitamins with Iron/Calcium/Folic Acid/Minerals Tab PO SCH (09:33)
[2018-12-23] MEDS: Lisinopril 40 MG Tab *PTOM PO SCH (09:33)
[2018-12-23] MEDS: Sodium Chloride 0.9% 1,000 ML IV SCH ×2 (09:35→15:31)
[2018-12-23] MEDS ORDERED: Warfarin Sliding Scale PO SCH (09:45)
--- NOTE | 2018-12-23 10:43 | CR ---
INDICATION: Fast heart rate, abdominal discomfort. CHEST: Portable AP upright view of the chest, 12/23/18 - no comparisons. The heart is normal in size and shape. The aorta is calcified in the arch area. Overlying EKG leads are noted. There may be some minimal infiltrate at the left costophrenic angle - pneumonia cannot be excluded in that area, versus unusual epicardial fat pad. Otherwise, no finding to suggest an acute process is identified. There is a mild dextroconvex scoliosis suggested at the mid thoracic spine. IMPRESSION: 1. Cannot exclude minimal pneumonia at the left costophrenic angle versus unusual epicardial fat pad - PA and lateral views of the chest with full inspiration may be helpful in that regard. 2. ASD aorta. 3. Mild scoliosis. 4. Degenerative changes of mild to moderate degree at the glenohumeral joints. MTDD
[2018-12-23] MEDS: Carboxymethylcellulose Sodium 0.5% Ophth Soln 15 ML Bottle EYEBOTH SCH ×3 (11:40→20:46)
[2018-12-23] MEDS ORDERED: Warfarin 5 MG Tab *PTOM PO SCH (16:00)
[2018-12-23] MEDS ORDERED: DOXAZOSIN 8 MG PO SCH (21:00)
[2018-12-23] MEDS ORDERED: Finasteride 5 MG Tab *PTOM PO SCH (21:00)
[2018-12-23] MEDS ORDERED: Simvastatin 10 MG Tab *PTOM PO SCH (21:00)
[2018-12-24] MEDS: Sodium Chloride 0.9% 1,000 ML IV SCH (04:23)
[2018-12-24] MEDS ORDERED: Magnesium Sulfate/Water 2 GM in Premix Bag 1 BAG IV ONE (07:42)
[2018-12-24] MEDS ORDERED: metFORMIN 500 MG Tab.ER PO SCH (08:00)
[2018-12-24] MEDS: METOPROLOL 200 MG PO SCH (08:42)
[2018-12-24] MEDS: Lisinopril 40 MG Tab *PTOM PO SCH (08:42)
[2018-12-24] MEDS: Multivitamins with Iron/Calcium/Folic Acid/Minerals Tab PO SCH (08:43)
[2018-12-24] MEDS: Carboxymethylcellulose Sodium 0.5% Ophth Soln 15 ML Bottle EYEBOTH SCH ×2 (08:43→14:41)
--- NOTE | 2018-12-24 09:08 | PCM.PN ---
- General Info Date of Service: 12/24/18 Subjective Update: Patient's rate was 70-80s overnight. Was up to the bathroom a lot overnight, didn't sleep much per staff. He was very confused overnight and still this morning. Spoke with daughter Maria Luisa from [place], was concerned about the Metformin dose and causing his symptoms, discussed that we had changed him to long acting form which has less of gas/diarrhea side effects and decreased his dose to 1000 mg daily in am. His fasting sugar was 126 this morning. He denies any abdominal pain, no diarrhea today at time of rounding, ate breakfast fine. - Patient Data Vitals - Most Recent: Last Vital Signs Temp 36.7 C 12/24/18 07:58 Pulse 71 12/24/18 07:58 Resp 18 12/24/18 07:58 BP 117/73 12/24/18 07:58 Pulse Ox 94 L 12/24/18 07:58 Orthostatic Blood Pressure [ 175/144 Sitting] Orthostatic Blood Pressure [ 145/77 Supine] Weight - Most Recent: 90.718 kg I&O - Last 24 Hours: Intake & Output 12/23/18 12/24/18 12/24/18 22:59 06:59 14:59 Intake Total 600 50 Output Total 0 Balance 600 50 Lab Results Last 24 Hours: Laboratory Results - last 24 hr 12/23/18 12/23/18 12/23/18 Range/Units 11:30 11:30 19:25 PT (8.7-11.1) INR (0.89-1.13) POC Glucose (80-116) mg/dL Magnesium 1.7 L (1.8-2.5) mg/dL Troponin I < 0.017 L < 0.017 L (<0.017-0.056) ng/mL 12/23/18 12/24/18 Range/Units 20:44 06:08 PT 24.4 H (8.7-11.1) INR 2.54 H (0.89-1.13) POC Glucose 163 H (80-116) mg/dL Magnesium (1.8-2.5) mg/dL Troponin I (<0.017-0.056) ng/mL Med Orders - Current: Current Medications Acetaminophen (Tylenol) 650 mg PO Q4H PRN PRN Reason: Pain (Mild 1-3)/fever Artificial Tears (Refresh Tears 0.5%) 0 ml EYEBOTH TID [facility] Last Admin: 12/24/18 08:43 Dose: 1 drop Finasteride (Proscar) 5 mg PO BEDTIME [facility] Last Admin: 12/23/18 20:46 Dose: 5 mg Sodium Chloride (Normal Saline) 1,000 mls @ 75 mls/hr IV ASDIRECTED [facility] Last Admin: 12/24/18 04:23 Dose: 75 mls/hr Lisinopril (Prinivil) 20 mg PO DAILY [facility] Last Admin: 12/24/18 08:42 Dose: 20 mg Metformin HCl (Glucophage Xr) 1,000 mg PO WITHBREAKFAST [facility] Last Admin: 12/24/18 08:41 Dose: 1,000 mg Multivitamins/Minerals (Thera M Plus) 1 tab PO DAILY [facility] Last Admin: 12/24/18 08:43 Dose: 1 tab Doxazosin 8mg 0 each PO BEDTIME [facility] Last Admin: 12/23/18 20:46 Dose: 1 each Metoprolol 200mg * (Ptom) 0 each PO DAILY [facility] Last Admin: 12/24/18 08:42 Dose: 1 each Ondansetron HCl (Zofran Odt) 4 mg PO Q6H PRN PRN Reason: nausea, able to take PO Ondansetron HCl (Zofran) 4 mg IV Q6H PRN PRN Reason: Nausea/Vomiting Simvastatin (Zocor) 20 mg PO BEDTIME [facility] Last Admin: 12/23/18 20:46 Dose: 20 mg Sodium Chloride (Saline Flush) 10 ml FLUSH ASDIRECTED PRN PRN Reason: Keep Vein Open Last Admin: 12/23/18 05:00 Dose: 10 ml Warfarin Sodium (Coumadin) 5 mg PO SuTuThSa@1600 [facility] Warfarin Sodium (Coumadin) 2.5 mg PO MoWeFr@1600 [facility] Last Admin: 12/23/18 16:36 Dose: 2.5 mg Warfarin Sodium (Coumadin Sliding Scale) 1 each PO ASDIRECTED [facility] Discontinued Medications Sodium Chloride (Normal Saline) 500 mls @ 999 mls/hr IV .BOLUS ONE Stop: 12/23/18 05:53 Last Admin: 12/23/18 05:39 Dose: 999 mls/hr Magnesium Sulfate 2 gm/ Premix 50 mls @ 150 mls/hr IV ONETIME ONE Stop: 12/23/18 06:56 Last Admin: 12/23/18 06:40 Dose: 150 mls/hr Magnesium Sulfate 2 gm/ Premix 50 mls @ 50 mls/hr IV ONETIME ONE Stop: 12/24/18 08:41 Last Admin: 12/24/18 08:41 Dose: 50 mls/hr Metformin HCl (Glucophage) 1,000 mg PO BID KATTY Metformin HCl (Glucophage Xr) 1,000 mg PO BIDMEALS KATTY Last Admin: 12/23/18 09:53 Dose: 1,000 mg - Exam General: Alert, Oriented (person, pleasantly confused.) Lungs: Clear to Auscultation, Normal Respiratory Effort Cardiovascular: Regular Rate, Regular Rhythm GI/Abdominal Exam: Normal Bowel Sounds, Soft, Non-Tender Extremities: No Pedal Edema Skin: Warm, Dry, Intact - Problem List & Annotations (1) Abdominal pain SNOMED Code(s): 99556138 Code(s): R10.9 - UNSPECIFIED ABDOMINAL PAIN Status: Acute Current Visit: Yes Qualifiers: Abdominal location: generalized Qualified Code(s): R10.84 - Generalized abdominal pain (2) Chronic anticoagulation SNOMED Code(s): 012512704 Code(s): Z79.01 - AUT[employer]UTCH SPECIALIST (CURRENT) USE OF ANTICOAGULANTS Status: Chronic Current Visit: Yes (3) Heart block SNOMED Code(s): 844089895 Code(s): I45.9 - CONDUCTION DISORDER, UNSPECIFIED Status: Chronic Current Visit: Yes (4) A-fib SNOMED Code(s): 71894376 Code(s): I48.91 - UNSPECIFIED ATRIAL FIBRILLATION Status: Chronic Current Visit: No - Problem List Review Problem List Initiated/Reviewed/Updated: Yes - My Orders Last 24 Hours: My Active Orders 12/23/18 09:00 Carboxymethylcellulose Sodium [Refresh Tears 0.5%] 0 ml EYEBOTH TID Lisinopril [Prinivil] 20 mg PO DAILY Multivitamins w-Iron/Ca/FA/Min [Thera M Plus] 1 tab PO DAILY Non-Formulary Medication [NF Drug] 0 each PO DAILY 12/23/18 09:45 Warfarin Sliding Scale [Coumadin Sliding Scale] 1 each PO ASDIRECTED 12/23/18 16:00 Warfarin [Coumadin] 2.5 mg PO MoWeFr@1600 12/23/18 16:56 Consult to [facility] [Consult to Palliative Care] [CONS] Routine 12/23/18 21:00 Finasteride [Proscar] 5 mg PO BEDTIME Non-Formulary Medication [NF Drug] 0 each PO BEDTIME Simvastatin [Zocor] 20 mg PO BEDTIME 12/24/18 07:59 BASIC METABOLIC PANEL,BMP [CHEM] Routine 12/24/18 08:00 metFORMIN [Glucophage XR] 1,000 mg PO WITHBREAKFAST 12/24/18 13:00 MAGNESIUM [CHEM] Routine 12/24/18 16:00 Warfarin [Coumadin] 5 mg PO SuTuThSa@1600 12/25/18 06:00 INR,PT,PROTHROMBIN TIME [COAG] DAILY 12/26/18 06:00 INR,PT,PROTHROMBIN TIME [COAG] DAILY - Plan Plan:: 1. Serial cardiac enzymes were normal for 3 sets. 2. Telemetry showing 1 degree block. Pharmacy reviewed his home medications, Metoprolol only medication that could worsening heart block/bradycardia. Will discontinue. 3. Metformin 1000 mg extended release daily so far helping with abdominal symptoms. Discussed with his daughter Maria Luisa that will discharge him on the 1000 mg dose and have him follow up with Dr Santos in a week and review his blood sugars and if they are low to staying in 126-150 range that they may try weaning again until he is on the lowest dose that controls his blood sugars so side effects maybe limited. Her questions were answered and she was relieved that we had made the changes. She also stated that when he is out of his home he does tend to be more confused so if he is able she stated he would do better at home. 4. Magnesium came up to 1.7, repeat Magnesium Sulfate 2G IV and repeat lab this afternoon. 5. Pharmacy to do Warfarin sliding scale. 6. Consult [facility] to Home for palliative screening/home health services since he has had noticeable decline in health over past few months with more admissions to the hospital.
[2018-12-24 12:28] VITALS: BP 160/73; PULSE 60
--- NOTE | 2018-12-24 13:25 | PCM.DCSUM1 ---
Discharge Summary - Hospital Course HPI Initial Comments: Patient was admitted for observation from ER for abdominal pain/gas and serial cardiac enzymes with telemetry monitoring for arrhythmias seen in ER. He was jumping back and forth between 1st & 2nd degree blocks and junctional rhythms in the ER. He had woke up morning of admission with pain and inability to belch to relieve the pressure, his found him sitting on the edge of the bed where he had been sitting for about an hour. He denied shortness of breath, chest pain or diaphoresis. He had been recently admitted for atrial fibrillation & similar abdominal symptoms within the last 2 months. Diagnosis: Stroke: No - Discharge Data Discharge Date: 12/24/18 Discharge Disposition: Home, W Home Health Agency 06 Condition: Stable - Discharge Diagnosis/Problem(s) (1) Abdominal pain SNOMED Code(s): 90292653 ICD Code: R10.9 - UNSPECIFIED ABDOMINAL PAIN Status: Resolved Current Visit: Yes Qualifiers: Abdominal location: generalized Qualified Code(s): R10.84 - Generalized abdominal pain (2) Chronic anticoagulation SNOMED Code(s): 364449775 ICD Code: Z79.01 - SURVEY STATISTICIAN (CURRENT) USE OF ANTICOAGULANTS Status: Chronic Current Visit: Yes (3) Heart block SNOMED Code(s): 364748970 ICD Code: I45.9 - CONDUCTION DISORDER, UNSPECIFIED Status: Chronic Current Visit: Yes Problem Details: 1st degree, bradycardia down into 40s, discontinued metoprolol. (4) A-fib SNOMED Code(s): 65707755 ICD Code: I48.91 - UNSPECIFIED ATRIAL FIBRILLATION Status: Chronic Current Visit: No Problem Details: Telemetry showed 1st degree block with some bradycardia during hospital stay but no atrial fibrillation once he reached the medical floor. Qualifiers: Atrial fibrillation type: paroxysmal Qualified Code(s): I48.0 - Paroxysmal atrial fibrillation (5) Hypomagnesemia SNOMED Code(s): 100557137 ICD Code: E83.42 - HYPOMAGNESEMIA Status: Resolved Current Visit: Yes Problem Details: Magnesium at 1.9 on discharge - Patient Summary/Data Consults: Consultations 12/23/18 16:56 Consult to [facility] [Consult to Palliative Care] [CONS] Routine Comment: Physician Instructions: Reason for Consult: palliative care screening for declining health/frequent admits Hospital Course: Patient had 3 sets of cardiac enzymes which came back 0.019, <0.017(2nd and 3rd set) which are within normal range. Abdominal pain/gas feeling resolved during stay. He had Metoprolol held on admission. He had his Metformin changed to extended release version 1000 mg and frequency changed to once daily with breakfast to help minimize symptoms of diarrhea, gas. His fasting sugar on discharge was 126. He has not had any further diarrhea stools and had a formed stool this morning. He was found to have a magnesium level of 1.2 in ER, received Magnesium sulfate 2 grams IV in ER, level was rechecked and came up to 1.7. He received another 2 grams IV of magnesium on the floor and level was rechecked and was . Consult for Home Health/Palliative care screen ordered as he has had decline in health over the past few months: more confusion when not at home per family, Diabetes, Hypertension and for disease teaching/counseling. - Patient Instructions Diet: Diabetic Diet Activity: As Tolerated Notify Provider of: Increased Pain, Nausea and/or Vomiting - Discharge Plan *PRESCRIPTION DRUG MONITORING PROGRAM REVIEWED*: Not Applicable *COPY OF PRESCRIPTION DRUG MONITORING REPORT IN PATIENT JOURDAN: Not Applicable Prescriptions/Med Rec: metFORMIN [Glucophage XR] 1,000 mg PO WITHBREAKFAST 30 Days #30 tab.er Home Medications: Home Meds Doxazosin [Cardura] 8 mg PO BEDTIME 08/06/13 [History] Lisinopril 20 mg PO DAILY 08/06/13 [History] Simvastatin [Zocor] 20 mg PO BEDTIME 08/06/13 [History] Carboxymethylcellulose Sodium [Refresh Tears 0.5%] 1 drop EYEBOTH TID 10/20/18 [ History] Finasteride [Proscar] 5 mg PO BEDTIME 10/20/18 [History] Multivitamin [Daily Bjorn] 1 each PO DAILY 12/23/18 [History] Warfarin [Coumadin] 2.5 mg PO MOWEFR 12/23/18 [History] Warfarin [Coumadin] 5 mg PO SUTUTHSA 12/23/18 [History] metFORMIN [Glucophage XR] 1,000 mg PO WITHBREAKFAST 30 Days #30 tab.er 12/24/18 [Rx] Forms: ED Department Discharge Referrals: Charles Santos MD [Primary Care Provider] - - Discharge Summary/Plan Comment DC Time >30 min.: No - Patient Data Vitals - Most Recent: Last Vital Signs Temp 36.7 C 12/24/18 07:58 Pulse 60 12/24/18 12:26 Resp 16 12/24/18 12:26 BP 160/73 H 12/24/18 12:26 Pulse Ox 99 12/24/18 12:26 Orthostatic Blood Pressure [ 175/144 Sitting] Orthostatic Blood Pressure [ 145/77 Supine] Weight - Most Recent: 90.718 kg I&O - Last 24 hours: Intake & Output 12/23/18 12/24/18 12/24/18 22:59 06:59 14:59 Intake Total 600 50 Output Total 0 Balance 600 50 Lab Results - Last 24 hrs: Laboratory Results - last 24 hr 12/23/18 12/23/18 12/24/18 Range/Units 19:25 20:44 06:08 PT 24.4 H (8.7-11.1) INR 2.54 H (0.89-1.13) POC Glucose 163 H (80-116) mg/dL Troponin I < 0.017 L (<0.017-0.056) ng/mL Med Orders - Current: Current Medications Acetaminophen (Tylenol) 650 mg PO Q4H PRN PRN Reason: Pain (Mild 1-3)/fever Artificial Tears (Refresh Tears 0.5%) 0 ml EYEBOTH TID [facility] Last Admin: 12/24/18 08:43 Dose: 1 drop Finasteride (Proscar) 5 mg PO BEDTIME [facility] Last Admin: 12/23/18 20:46 Dose: 5 mg Sodium Chloride (Normal Saline) 1,000 mls @ 75 mls/hr IV ASDIRECTED [facility] Last Admin: 12/24/18 04:23 Dose: 75 mls/hr Lisinopril (Prinivil) 20 mg PO DAILY [facility] Last Admin: 12/24/18 08:42 Dose: 20 mg Metformin HCl (Glucophage Xr) 1,000 mg PO WITHBREAKFAST [facility] Last Admin: 12/24/18 08:41 Dose: 1,000 mg Multivitamins/Minerals (Thera M Plus) 1 tab PO DAILY [facility] Last Admin: 12/24/18 08:43 Dose: 1 tab Doxazosin 8mg 0 each PO BEDTIME [facility] Last Admin: 12/23/18 20:46 Dose: 1 each Metoprolol 200mg * (Ptom) 0 each PO DAILY [facility] Last Admin: 12/24/18 08:42 Dose: 1 each Ondansetron HCl (Zofran Odt) 4 mg PO Q6H PRN PRN Reason: nausea, able to take PO Ondansetron HCl (Zofran) 4 mg IV Q6H PRN PRN Reason: Nausea/Vomiting Simvastatin (Zocor) 20 mg PO BEDTIME [facility] Last Admin: 12/23/18 20:46 Dose: 20 mg Sodium Chloride (Saline Flush) 10 ml FLUSH ASDIRECTED PRN PRN Reason: Keep Vein Open Last Admin: 12/23/18 05:00 Dose: 10 ml Warfarin Sodium (Coumadin) 5 mg PO [id number]@1600 [facility] Warfarin Sodium (Coumadin) 2.5 mg PO [id number]@1600 [facility] Last Admin: 12/23/18 16:36 Dose: 2.5 mg Warfarin Sodium (Coumadin Sliding Scale) 1 each PO ASDIRECTED [facility] Discontinued Medications Sodium Chloride (Normal Saline) 500 mls @ 999 mls/hr IV .BOLUS ONE Stop: 12/23/18 05:53 Last Admin: 12/23/18 05:39 Dose: 999 mls/hr Magnesium Sulfate 2 gm/ Premix 50 mls @ 150 mls/hr IV ONETIME ONE Stop: 12/23/18 06:56 Last Admin: 12/23/18 06:40 Dose: 150 mls/hr Magnesium Sulfate 2 gm/ Premix 50 mls @ 50 mls/hr IV ONETIME ONE Stop: 12/24/18 08:41 Last Admin: 12/24/18 08:41 Dose: 50 mls/hr Metformin HCl (Glucophage) 1,000 mg PO BID KATTY Metformin HCl (Glucophage Xr) 1,000 mg PO BIDMEALS [facility] Last Admin: 12/23/18 09:53 Dose: 1,000 mg
[2018-12-24] MEDS ORDERED: Warfarin 5 MG Tab *PTOM PO SCH (16:00)
== END 2018-12-24 15:30 | disposition home health service (06) ==
LOC: FB.ED 04:26 → FB.MS 06:51
PROVIDERS: ADMIT Emergency Medicine; ATTEND Family Medicine
DX: R10.84 Generalized abdominal pain (principal); I44.0 Atrioventricular block, first degree; I48.0 Paroxysmal atrial fibrillation; E83.42 Hypomagnesemia; I25.10 Atherosclerotic heart disease of native coronary artery without angina pectoris; I25.2 Old myocardial infarction; E11.9 Type 2 diabetes mellitus without complications; E78.00 Pure hypercholesterolemia, unspecified; Z95.5 Presence of coronary angioplasty implant and graft; Z87.891 Personal history of nicotine dependence; Z79.01 Long term (current) use of anticoagulants; Z79.84 Long term (current) use of oral hypoglycemic drugs; Z79.899 Other long term (current) drug therapy
CPT/HCPCS: 36415; 71045; 80048; 80053; 81001; 82150; 82962; 83735; 84484; 85025; 85610; 93005; 96361; 96365; 96374; 99285; A9270; G0378; J3475; J7030; J7040; 93010; 96366